=== PATIENT | female | born 1975 ===

== ENCOUNTER → 2019-10-23 | Outpatient (CLI) | payer OTHER ==
[~2019-10-23] VITALS: Ht 175.3 cm; Wt 111.1 kg
[~2019-10-23] MED LIST: CARVEDILOL12.5 MG PO; METHADONE HCL5 MG PO; NORCO 5-325 TA1 EAC1 PO; TIZANIDINE HCL 22 M1 PO; TRAZODONE HCL100 MG PO; XANAX1 MG PO; ZOFRAN4 MG PO
[2019-10-23 12:53] VITALS: BP 149/98
--- NOTE | 2019-10-23 13:22 | NUR ---
Pain Clinic Assessment: 1. History of Osteoarthritis: History of Rheumatoid Arthritis: Not Applicable 2. Height: 5 ft. 9 in. 175.3 cm. Weight: 245.0 lb. oz. 111.132 kg. Patient's BMI: 6.8 3. Vital Signs: BP: 149/98 Pulse: 61 Resp: 29 Temp: 02 Sat: 98 ECG Mon: 4. Pain Intensity: 7 5. Fall Risk: Dizziness: Y Needs help standing or walking: N Fallen in the last 3 months: N Fall risk comments: 6. Patient on Blood Thinner: 7. History of Hypertension: N 8. Opioid Therapy greater than 6 weeks: Y Opiate Contract Signed: 9. Risk Assessment Tool Provided: 10. Functional Assessment Tool: 11. Recreational Drug Use: Drug Type: Tobacco Use: Current Every Day Smoker Tobacco Type: Cigarettes Amount or Packs/day: 1 How Many Years: 30 Alcohol Use: No Frequency: Quant:
--- NOTE | 2019-11-10 14:24 | HPC ---
[facility] [address] [place] [address] PAIN MANAGEMENT CONSULTATION Name: ARACELI PIERSON Room #: REG OLIVIA JohnsonJim#: [id number] Admission: 10/23/19 Attend Phys: Romelia Stovall MD Discharge: Date of : 73 Report #: [id number] THIS REPORT FOR: //name// CC: GLORIA physician/PCP Nakul Marie DATE OF SERVICE: 10/23/2019 CHIEF COMPLAINT: Right upper quadrant pain, which is stabbing, nonstop with nausea. HISTORY: The patient is a 44-year-old female who has been referred to the pain clinic. The patient states that she has a history of pseudotumor cerebri with chronic pain. She has had a number of shunts placed. A total of 27 since 2005. They have been placed in her brain as well as in the abdominal area. She has history of seizures. This is being treated for asthma. She has stomach problems, joint disease. She has pain, which is most problematic at this point on the right upper quadrant underneath her breast and chest area. She has had epidural steroid injections in the past. As a result of the arachnoiditis, she had increased pain and discomfort for quite some time after that procedure. She has seen a number of specialists for her pain, yet her pain continues to be problematic. PAST MEDICAL HISTORY: As described above. SOCIAL HISTORY: She has been disabled since 2003. PAIN CLINIC ASSESSMENT/PQRS: 1. History of osteoarthritis. The patient is not being treated for osteoarthritis, is not being treated for rheumatoid arthritis. 2. Height 5 feet 9 inches, weight 245 pounds, BMI is to be tabulated. 3. Vital signs: Blood pressure is 149/98, pulse 61, respiratory rate 29. 4. Saturations at 98%. 5. Pain intensity 7-810. 6. Fall history: The patient has not fallen in the last 3 months. 7. Blood thinner. The patient is not on a blood thinning medication. 8. Hypertension. The patient is not being treated for hypertension. 9. Opioids greater than 6 weeks. The patient received some opioid medications from her primary physician. 10. Risk assessment tool, moderate for opioid use. 11. Functional assessment tool, 55/70. 12. Recreational drug use: The patient denies. 13. Tobacco: The patient smokes 1 pack of cigarettes per day and smoked for last 30 years. 14. Alcohol. The patient denies use of alcoholic beverages. [address] [address] PAIN MANAGEMENT CONSULTATION Name: ARACELI PIERSON Room #: REG CLI AlexJim#: [id number] Admission: 10/23/19 Attend Phys: Romelia Stovall MD Discharge: Date of : 73 Report #: [id number] PHYSICAL EXAMINATION: GENERAL: The patient is a well-developed, well-nourished white female. Appears her stated age. She is alert and oriented x 3. She is tearful during the interview. Has complaints of pain and discomfort in the left and right arms. Has pain in the occipital areas. Has some midline pain. Has pain in the left and right lumbar paraspinous areas. Also, has pain and discomfort in the right area approximately T8, 9, 10 area of her right chest wall. EXTREMITIES: Upper extremity muscle strength is judged to be 5-/5 for the major muscle groups in the upper extremity. Lower extremity, the patient's muscle strength judged to be 5/5 in the major muscle groups in the lower extremity. The patient complains of pain and discomfort along the right thoracic area approximately T8 through T10. This area is sensitive and areas of hyperesthesia are noted. LABORATORY DATA: CT of the chest without contrast dated 09/02/2019. Findings; 1. Cardiac unremarkable. Normal heart size without pericardial effusion. 2. Pulmonary vasculature and aorta are unremarkable. 3. Nodes unremarkable. No thoracic adenopathy. 4. Lungs are unremarkable. No focal infiltrates, suspicious pulmonary nodules or pulmonary effusion. 5. Limited evidence of a prior anterior abdominal wall repair. Absent gallbladder elevation of the left hemidiaphragm. 6. Bone degenerative changes of the spine, stimulator wires noted, otherwise negative. MEDICATIONS: The medications are; 1. Alprazolam 1 mg 2 times daily. 2. Carvedilol 12.5 mg daily. 3. Tizanidine 2 mg 3 pills t.i.d. 4. Zofran 4 mg daily. 5. Hydrocodone 5/325 one p.o. t.i.d. 6. Trazodone 200 mg at bedtime. ALLERGIES: ULTRAM, TEGADERM, LATEX, TETRACYCLINE, NONSTEROIDAL ANTI-INFLAMMATORY MEDICATIONS HAVE BEEN PROBLEMATIC. ADHESIVE TAPES, LYRICA, GABAPENTIN. IMPRESSION: 1. Pseudotumor cerebri. 2. Chronic pain. RECOMMENDATIONS: We discussed treatment options with the patient. The patient is unable to take a number of medications. She states that GI problems preclude her from using nonsteroidal anti-inflammatory medications. She states that she [address] [address] PAIN MANAGEMENT CONSULTATION Name: ARACELI PIERSON Room #: REG OLIVIA Knight#: [id number] Admission: 10/23/19 Attend Phys: Romelia Stovall MD Discharge: Date of : 73 Report #: [id number] did find some benefit with using Lidoderm patches applied to the chest wall. These were no longer an option because of her insurance carrier. We have explained to the patient that use of RectiCare, which is a 5% solution of lidocaine can be applied to the area and has been by some patients and they found that this has been helpful. We will have the patient try methadone. We have explained the ability of methadone to help in some pain conditions where other opioid medications have been less effective. We have explained that opioid medications can be problematic in certain patients. They can develop an addiction to these medications. She states that she has been using her hydrocodone medication and has not been showing signs of addiction. Script for methadone 10 mg 1 tablet daily has been written. The patient will also try use of RectiCare, which is a 5% lidocaine solution or Salonpas which is a 4% lidocaine solution. We would like to thank you for letting us participate in her care. We hope she continues to improve. <ELECTRONICALLY SIGNED> By: Romelia Stovall MD 11/10/19 1424 [id number] Romelia Stovall MD /nt
== END ==
LOC: PAIN 07:34
DX: R10.11 Right upper quadrant pain (principal); G93.2 Benign intracranial hypertension

== ENCOUNTER → 2019-11-18 | Outpatient (CLI) | payer OTHER ==
[~2019-11-18] VITALS: Ht 175.3 cm; Wt 107.8 kg
[2019-11-18 09:43] VITALS: BP 136/73
--- NOTE | 2019-11-18 09:58 | NUR ---
Pain Clinic Assessment: 1. History of Osteoarthritis: NECK HANDS-MAY BE RA History of Rheumatoid Arthritis: POSSIBLY 2. Height: 5 ft. 9 in. 175.3 cm. Weight: 237.6 lb. oz. 107.775 kg. Patient's BMI: 35.1 3. Vital Signs: BP: 136/73 Pulse: 65 Resp: 16 Temp: 02 Sat: 98 ECG Mon: 4. Pain Intensity: 5-7 5. Fall Risk: Dizziness: Y Needs help standing or walking: N Fallen in the last 3 months: N Fall risk comments: 6. Patient on Blood Thinner: None 7. History of Hypertension: N 8. Opioid Therapy greater than 6 weeks: Y Opiate Contract Signed: 9. Risk Assessment Tool Provided: 3-LOW RISK 10. Functional Assessment Tool: 55/70 11. Recreational Drug Use: Never Drug Type: Tobacco Use: Current Every Day Smoker Tobacco Type: Amount or Packs/day: How Many Years: Alcohol Use: No Frequency: Quant:
--- NOTE | 2019-11-19 15:59 | HPC ---
[facility] [address] [place] [address] PAIN MANAGEMENT CONSULTATION Name: ARACELI PIERSON Room #: REG OLIVIA Alex.#: [id number] Admission: 11/18/19 Attend Phys: Felicitas Moss Discharge: Date of : 73 Report #: [id number] THIS REPORT FOR: //name// CC: Felicitas Moss [facility] physician/PCP Nakul Stovall MD DATE OF SERVICE: 11/18/2019 CHIEF COMPLAINT: Right upper quadrant pain as a result of pseudotumor cerebri. HISTORY OF PRESENT ILLNESS: This is a pleasant 44-year-old female who returns to the pain clinic today for evaluation on a newly started medication of methadone. The patient reports that her pain score is a 5 today. She feels that the methadone is very beneficial in controlling her pain. She reports that following day after taking her first dose, she felt so much better, she was able to cook for her family, which she had not been able to do for a significant amount of time. She takes her dose at 4-5 in the morning. She does feel that by midday, it is wearing off. She does continue to take 2-3 hydrocodone a day and finds that she is able to function much better on this new regimen. Her pain is in the right chest wall that does radiate into her lumbar area again rating her pain score 5/10, which is sharp, stabbing, constant pain. She would like to have a refill of this medication today. ALLERGIES: LATEX, NONSTEROIDALS ANTI-INFLAMMATORIES, ADHESIVE TAPE, TRAMADOL, GABAPENTIN, AND LYRICA. MEDICATIONS: Methadone 5 mg daily, trazodone 200 mg at bedtime, hydrocodone 5/325 t.i.d., Zofran p.r.n., tizanidine 6 mg t.i.d. p.r.n., and alprazolam 1 mg b.i.d. PQRS: 1. She has a history of osteoarthritis and not being treated for in her neck and hands. She denies any rheumatoid arthritis. 2. Height is 5 feet 9 inches, weight is 237, BMI is 35. 3. Vital signs 136/73, pulse is 65, respirations 16, oxygen sat is 98. 4. Pain score is 5/10. 5. Complains of dizziness, does not need help walking or standing, has not fallen in the last 3 months. She is not on any blood thinners or medicines for hypertension. Her opioid therapy is greater than 6 weeks. Her risk assessment tool is low. Functional assessment is 55/70. 6. Recreational drug use, she denies. She is a current smoker and does not drink alcohol. [address] [address] PAIN MANAGEMENT CONSULTATION Name: ARACELI PIERSON Room #: REG OLIVIA Knight#: [id number] Admission: 11/18/19 Attend Phys: Felicitas Moss Discharge: Date of : 73 Report #: [id number] According to the prescription monitoring system, the patient is due to fill her methadone this weekend. She is also getting her alprazolam and her hydrocodone from her primary care doctor. PHYSICAL EXAMINATION: GENERAL: This is alert and orientated, well-developed white female who appears her stated age. She is placing her current pain score 5/10. HEENT: She has pain and discomfort in her occipital areas. MUSCULOSKELETAL: Pain in her right thoracic area following the T8-T10 is very sensitive and radiates into her right chest wall under her right breast. Her lower extremity strength judged to be 5/5 in all major muscle groups. IMPRESSION: 1. Pseudotumor cerebri. 2. Chronic pain. 3. Complex medical management utilizing methadone. We reviewed the fact that opiate medications are being used to provide analgesia adequate to support activities of daily living, not attempting to achieve a specific pain score on the 0-10 Visual Analog Scale. The current opiate medications are providing sufficient analgesia to allow the patient to participate in activities of daily living. The patient is not exhibiting any aberrant behavior suggestive of drug diversion. The patient is not having any adverse reactions to medications. The patient is not suffering from daytime somnolence or mental acuity changes. The patient is managing opiate-induced constipation with appropriate capr-kin-hlxxzaf agents and dietary considerations. The patient was counseled on concern for caution with operating a motor vehicle while using opiate medications. A physical exam was performed and the patient's functional status was evaluated. All patients with back pain were advised against the bed rest greater than 4 days and were advised to return to normal activities. Pain score assessment was noted and the treatment plan was reviewed with the patient. All current medications, both prescribed and OTC were reviewed and reconciled on the electronic medical record. Tobacco screening was accomplished and smoking cessation was advised when indicated. BMI was noted and diet/exercise modification was recommended for all patients following outside normal parameters. I reviewed with the patient today their responsibilities to safeguard prescription medications, reviewed their responsibility to utilize medications only as prescribed by the physician. They are to seek and receive pain medications only from 1 physician group ([facility]). They are to use 1 pharmacy and keep the clinic informed if they change pharmacies. Their responsibilities include making followup visits in a timely fashion and to avoid abrupt discontinuation of medication usage. Their responsibilities further [address] [address] PAIN MANAGEMENT CONSULTATION Name: ARACELI PIERSON Room #: REG [facility].#: [id number] Admission: 11/18/19 Attend Phys: Felicitas Moss Discharge: Date of : 73 Report #: [id number] include bringing their medications (bottles from the pharmacy with residual pills) to the visit for possible confirmation of pill counts and the patient understands it is their responsibility to submit to random drug screens to ensure both that the medications prescribed are present, and that no other controlled substances are present. All prescriptions provided today were generated electronically. PLAN: 1. We discussed treatment options with the patient today. The patient feels that the methadone therapy has been very beneficial helping her pain at least 20%. She reports she was able to cook and help rule out around the house while taking this medication, though it does decrease in efficacy in the afternoon hours. We discussed increasing her methadone to 5 mg b.i.d. We discussed the half-life of this medication and possible side effects. The patient verbalizes understanding. We will trial 5 mg twice a day for the next month. The patient instructed to decrease her hydrocodone use to 2 a day when we increase her methadone. She verbalizes understanding. 2. We discussed opioid and benzodiazepine interactions and encouraged the patient not to take these medicines at the same time, utilizing the lowest most effective dose of both medications. 3. We also discussed that we will have the patient sign an opioid agreement at her next appointment. If we continue to write for her methadone and not her primary care doctor, we will also then at that time take over writing her hydrocodone having 1 provider prescribing opioids. She verbalizes understanding. 4. Appointment made for 12/18/[address] Stovall to evaluate her increase in methadone. <ELECTRONICALLY SIGNED> By: Felicitas Moss 11/19/19 1559 [id number] Felicitas Moss /nt
== END ==
LOC: PAIN 06:45
DX: G93.2 Benign intracranial hypertension (principal); R10.11 Right upper quadrant pain; G89.29 Other chronic pain; Z91.041 Radiographic dye allergy status; Z88.8 Allergy status to other drugs, medicaments and biological substances; Z91.048 Other nonmedicinal substance allergy status; Z79.899 Other long term (current) drug therapy

== ENCOUNTER → 2019-12-18 | Outpatient (CLI) | payer OTHER ==
[~2019-12-18] VITALS: Ht 175.3 cm; Wt 109.7 kg
[2019-12-18 10:46] VITALS: BP 109/56
--- NOTE | 2019-12-18 11:04 | NUR ---
Pain Clinic Assessment: 1. History of Osteoarthritis: NECK HANDS-MAY BE RA History of Rheumatoid Arthritis: POSSIBLY 2. Height: 5 ft. 9 in. 175.3 cm. Weight: 241.8 lb. oz. 109.680 kg. Patient's BMI: 35.7 3. Vital Signs: BP: 109/56 Pulse: 50 Resp: 14 Temp: 02 Sat: 97 ECG Mon: 4. Pain Intensity: 4 5. Fall Risk: Dizziness: N Needs help standing or walking: N Fallen in the last 3 months: N Fall risk comments: 6. Patient on Blood Thinner: None 7. History of Hypertension: N 8. Opioid Therapy greater than 6 weeks: Y Opiate Contract Signed: 12/18/19 9. Risk Assessment Tool Provided: 3-LOW RISK 10. Functional Assessment Tool: 11. Recreational Drug Use: Never Drug Type: Tobacco Use: Former Smoker Tobacco Type: Amount or Packs/day: How Many Years: Alcohol Use: No Frequency: Quant:
--- NOTE | 2019-12-23 13:33 | HPC ---
[facility] [address] [address] PAIN MANAGEMENT CONSULTATION Name: ARACELI PIERSON Room #: REG OLIVIA JohnsonJim#: [id number] Admission: 12/18/19 Attend Phys: Romelia Stovall MD Discharge: Date of : 73 Report #: [id number] THIS REPORT FOR: cc: GLORIA - Jennifer family physician/PCP GLORIA - Jennifer family physician/PCP Romelia Stovall MD ~ THIS REPORT FOR: //name// CC: GLORIA physician/PCP Romelia Stovall DATE OF SERVICE: 12/18/2019 CHIEF COMPLAINT: Headache pain from pseudotumor cerebri. The medications are helpful. HISTORY: The patient is a 44-year-old female who is being followed in the pain clinic because of chronic pain. As you may recall, she has had chronic headaches for much of her life. She has had numerous shunts. She states that she has had about 28 shunts since 2005, because of the continued pressure she suffers from significant headaches. She has tried a number of medications over the years. She continues to have pain in the right upper quadrant under her breast and chest area. These are some of the areas where the shunt have been placed. 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 She has found that methadone has been efficacious. She has taken the medication as prescribed and has returned today for followup and review. ALLERGIES: NONSTEROIDAL ANTI-INFLAMMATORY MEDICATIONS, TETRACYCLINE, LATEX, ULTRAM, TEGADERM, ADHESIVES, LYRICA, GABAPENTIN. CURRENT MEDICATIONS: Alprazolam 1 mg b.i.d., carvedilol 12.5 mg, tizanidine 2 mg 3 pills t.i.d., Zofran 4 mg daily, hydrocodone 5/325 one p.o. b.i.d. to t.i.d., trazodone 200 mg at bedtime, and methadone 5 mg b.i.d. PAIN CLINIC ASSESSMENT AND PQRS: 1. The patient is not being treated for osteoarthritis. She is not being treated for rheumatoid arthritis. 2. Height 5 feet 9 inches, weight 241 pounds, BMI is 35.7. 3. Vital signs: Blood pressure 109/56, pulse 50, respiratory rate 16, room air saturation is 97%. 4. Pain intensity 02/18. 5. Fall history: The patient has not fallen in the last 3 months. 6. Blood thinner. The patient is not on a blood thinning medication. 7. Hypertension. The patient is being treated for hypertension. 8. Opioids greater than 6 weeks. The patient received medication from one source, [place] [address] PAIN MANAGEMENT CONSULTATION Name: ARACELI PIERSON Room #: REG [facility] Eugene#: [id number] Admission: 12/18/19 Attend Phys: Romelia Stovall MD Discharge: Date of : 73 Report #: [id number] 9. Risk assessment tool, low for opioid use. 10. Functional assessment tool, . 11. Recreational drug use: The patient denies. 12. Tobacco: The patient stopped smoking, 3 weeks. She is vaping at this juncture. 13. Alcohol. The patient denies use of alcoholic beverages. PHYSICAL EXAMINATION: GENERAL: The patient is a well-developed, well-nourished white female. Appears her stated age. She is alert and oriented x 3. Her affect is appropriate. Speech is fluent. HEENT: Normocephalic, atraumatic. Extraocular eye muscles intact. Sclerae nonicteric. Mucous membranes are moist. She is accompanied by her . She has less pain in the left and right arm areas, less discomfort in the occipital areas. MUSCULOSKELETAL: Upper extremity muscle strength judged to be 5-/5 for the major muscle groups in the upper extremity. Lower extremity, the patient with muscle strength judged to be 5/5 for the major muscle groups. The patient without significant scoliosis, kyphosis, or lordosis. The patient has some pain and discomfort in the right thoracic area at approximately T8 through T10. This is an area of hyperesthesia. IMPRESSION: 1. Pseudotumor cerebri. 2. Chronic pain. 3. Hypertension. 4. Asthma. 5. Seizure history. 6. Stomach problems. 7. Past history of cancer, status post LEEP surgery. RECOMMENDATIONS: We discussed treatment options with the patient. At this juncture, she feels that the medication is helpful. She rates her pain today as 4/10. She is not having any complications from the medications. Overall, she feels that things are going reasonably well. We will continue with her medications. We explained to her the need to continue with her medications as prescribed. She has signed a contract with the pain clinic that she would adhere to the contract recommendations. She is aware that opioid medications can be problematic in certain people. She does not show any signs of addiction. She has taken her medication as prescribed. [facility] [address] [place] [address] PAIN MANAGEMENT CONSULTATION Name: BEEKER,ARACELI Room #: REG OLIVIA Knight#: [id number] Admission: 12/18/19 Attend Phys: Romelia Stovall MD Discharge: Date of : 73 Report #: [id number] We would like to thank you for letting us participate in her care. We hope she continues to improve and do well with her current medical regimen. <ELECTRONICALLY SIGNED> By: Romelia Stovall MD 12/23/19 1333 [id number] Romelia Stovall MD /nt
== END ==
LOC: PAIN 06:54
DX: G93.2 Benign intracranial hypertension (principal); G89.29 Other chronic pain; I10 Essential (primary) hypertension; J45.909 Unspecified asthma, uncomplicated; Z85.9 Personal history of malignant neoplasm, unspecified; Z86.69 Personal history of other diseases of the nervous system and sense organs

== ENCOUNTER → 2020-01-15 | Outpatient (CLI) | payer OTHER ==
[~2020-01-15] VITALS: Ht 175.3 cm; Wt 108.6 kg
[2020-01-15 10:49] VITALS: BP 128/88
--- NOTE | 2020-01-15 11:17 | NUR ---
Pain Clinic Assessment: 1. History of Osteoarthritis: NECK HANDS-MAY BE RA History of Rheumatoid Arthritis: POSSIBLY 2. Height: 5 ft. 9 in. 175.3 cm. Weight: 239.4 lb. oz. 108.591 kg. Patient's BMI: 35.3 3. Vital Signs: BP: 128/88 Pulse: 65 Resp: 16 Temp: 02 Sat: 98 ECG Mon: 4. Pain Intensity: 7 5. Fall Risk: Dizziness: N Needs help standing or walking: N Fallen in the last 3 months: N Fall risk comments: 6. Patient on Blood Thinner: None 7. History of Hypertension: N 8. Opioid Therapy greater than 6 weeks: Y Opiate Contract Signed: 12/18/19 9. Risk Assessment Tool Provided: 3-LOW RISK 10. Functional Assessment Tool: 11. Recreational Drug Use: Never Drug Type: Tobacco Use: Former Smoker Tobacco Type: Amount or Packs/day: How Many Years: Alcohol Use: No Frequency: Quant:
--- NOTE | 2020-01-21 13:51 | HPC ---
[facility] [place] [address] PAIN MANAGEMENT CONSULTATION Name: ARACELI PIERSON Room #: REG OLIVIA Knight#: [id number] Admission: 01/15/20 Attend Phys: Romelia Stovall MD Discharge: Date of : 73 Report #: [id number] THIS REPORT FOR: cc: [facility] - No family physician/PCP [facility] - No family physician/PCP Romelia Stovall MD ~ CC: [facility] physician/PCP Nakul Stovall DATE OF SERVICE: 01/15/2020 CHIEF COMPLAINT: Headache pain from pseudotumor cerebri has improved. HISTORY: The patient is a 44-year-old female who has been followed in the pain clinic. As you may recall, she has had problems with headaches. Because of her pseudotumor cerebri the patient has had a number of shunts. She states that she has had about 28 hunts since 2005. Because of the continued pressure she experiences headaches. She has found that use of methadone improves her pain. She rates her pain as a 7/10 today. She also has some pain secondary to gastrointestinal discomfort. She has returned today for renewal of her medications. Overall, she thinks that things are helpful and would like to continue their use. ALLERGIES: 1. THE PATIENT HAS SOME GI PROBLEMS SECONDARY TO USE OF NONSTEROIDAL ANTI-INFLAMMATORY MEDICATIONS. 2. TETRACYCLINE 3. LASIX. 4. ULTRAM. 5. TEGADERM-ADHESIVES. 6. LYRICA. 7. GABAPENTIN. CURRENT MEDICATIONS: Alprazolam 1 mg b.i.d., carvedilol 12.5 mg, tizanidine 2 mg t.i.d., Zofran 4 mg daily, hydrocodone 5/325 one p.o. b.i.d. to t.i.d., trazodone 200 mg at bedtime, and methadone 5 mg b.i.d. PAIN CLINIC ASSESSMENT AND PQRS: 1. The patient has osteoarthritic changes in her neck as well as in her hands. Feels that she might have rheumatoid arthritis. 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 2. Height 5 feet 9 inches, weight 239 pounds, BMI is 35.3. 3. Vital Signs: Blood pressure 128/88, pulse 65, respiratory rate 16, room air saturation 98%. 4. Pain intensity 7/10 on the right side. She has noted some pain in the [facility] [address] [place] [address] PAIN MANAGEMENT CONSULTATION Name: ARACELI PIERSON [id number] Admission: 01/15/20 Attend Phys: Romelia Stovall MD Discharge: Date of : 73 Report #: [id number] thoracic area. 5. Fall history: The patient has not fallen in the last 3 months. 6. Blood thinner. The patient is not on a blood thinning medication. 7. Hypertension. The patient is not being treated for hypertension. 8. Opioids greater than 6 weeks. The patient receives medication from one source, pain clinic. 9. Risk assessment tool, low for opioid use. 10. Recreational drug use: The patient denies. 11. Functional assessment tool 55/70. 12. Tobacco: The patient is a former smoker, has not smoked for the last 2 months. 13. Alcohol. The patient rare use of alcoholic beverages. PHYSICAL EXAMINATION: GENERAL: The patient is a well-developed, well-nourished white female. Appears her stated age. She is alert and oriented x 3. She is accompanied by her significant other. HEENT: Normocephalic, atraumatic. Extraocular muscles intact. Sclerae nonicteric. Mucous membranes are moist. NECK: The patient has some pain and discomfort on the left side in the right arm area. Has some discomfort in the occipital areas. MUSCULOSKELETAL: Upper extremity muscle strength judged to be 5-/5 for the major muscle groups in the upper extremity. Lower extremity muscle strength judged to be 5/5 for the major muscle groups in the upper extremity. The patient without significant scoliosis, kyphosis, or lordosis. The patient has some pain and discomfort in the thoracic area at about T8 through T7 where this area has some hyperesthesia. IMPRESSION: 1. Pseudotumor cerebri. 2. Chronic pain as a result of this above problem. 3. Hypertension. 4. Asthma. 5. Seizure history. 6. Stomach problems. 7. Past history of cancer, status post LEEP surgery. RECOMMENDATIONS: We discussed treatment options with the patient. At this juncture, we will continue with her medication. She feels that the methadone medication has provided some improved benefit. She rates her pain as a 7/10 rather than 10/10. She is able to engage in activities with less discomfort. She is not having any untoward problems with the medication. She is able to think clearly. She is able to function clearly. She is aware that opioid medications can be problematic in some people. She is aware that opioid medications have been associated with the patient's dying from overdoses. She is taking the medication as prescribed. A script for her medication has been [facility] [address] [place] [address] PAIN MANAGEMENT CONSULTATION Name: ARACELI PIERSON Room #: LEIGH Knight#: [id number] Admission: 01/15/20 Attend Phys: Romelia Stovall MD Discharge: Date of : 73 Report #: [id number] rewritten. She will continue with hydrocodone 5/325 one p.o. t.i.d. The patient will also continue with methadone 5 mg b.i.d. She will call us if she has any concerns. We would like to thank you for letting us participate in her care. We hope she continues to improve. <ELECTRONICALLY SIGNED> By: Romelia Stovall MD 01/21/20 1351 [id number] Romelia Stovall MD /nt
== END ==
LOC: PAIN 06:51
DX: G93.2 Benign intracranial hypertension (principal); G89.4 Chronic pain syndrome; I10 Essential (primary) hypertension; J45.909 Unspecified asthma, uncomplicated; Z85.89 Personal history of malignant neoplasm of other organs and systems; Z88.1 Allergy status to other antibiotic agents; Z88.5 Allergy status to narcotic agent; Z88.8 Allergy status to other drugs, medicaments and biological substances; Z79.899 Other long term (current) drug therapy; Z87.891 Personal history of nicotine dependence; Z72.89 Other problems related to lifestyle

== ENCOUNTER → 2020-02-10 | Outpatient (CLI) | payer OTHER ==
[~2020-02-10] VITALS: Ht 175.3 cm; Wt 111.7 kg
[~2020-02-10] MED LIST changes: +MEDROLDOSEPACK PO
--- NOTE | ~2020-02-10 | HPC ---
[facility] [place] [address] PAIN MANAGEMENT CONSULTATION Name: ARACELI PIERSON Room #: REG OLIVIA Knight#: [id number] Admission: 02/10/20 Attend Phys: Romelia Stovall MD Discharge: Date of : 73 Report #: [id number] THIS REPORT FOR: cc: [facility] - Jennifer family physician/PCP [facility] - Jennifer family physician/PCP Romelia Stovall MD ~ CC: Dr. Nakul Pedersen [facility] physician/PCP Romelia Stovall DATE OF SERVICE: 02/10/2020 FOLLOWUP COMPLAINT: The headaches have improved with the medication. I am having more pain in my shoulder and down the low back area today. I did quite a bit of yard work. HISTORY: The patient is a 45-year-old female who has been followed in the pain clinic. She has had chronic problems with headaches. She has pseudotumor cerebri. She has had a number of shunts to decreased fluid pressure. She states that she has had about 28 shunts since 2005. She continues to have headache pain. She finds that the methadone medication has been helpful. She rates her pain as a 6/10 today. She has returned today for renewal of her medication. As a result of working out in her yard, she contacted poison howie. She has it on her face, hands, and up around her eye. ALLERGIES: THE PATIENT HAS SOME GI PROBLEMS SECONDARY TO USE OF NONSTEROIDAL ANTI-INFLAMMATORY MEDICATIONS. TETRACYCLINE, LASIX, ULTRAM, TEGADERMS/ADHESIVES, LYRICA, AND GABAPENTIN. CURRENT MEDICATIONS: Alprazolam 1 mg b.i.d., carvedilol 12.5 mg, tizanidine 2 mg t.i.d., Zofran 4 mg daily, hydrocodone 5/325 one p.o. b.i.d.-t.i.d., trazodone 200 mg at bedtime, and methadone 5 mg b.i.d. PAIN CLINIC ASSESSMENT/PQRS: 1. The patient has some changes in her neck as well as in her hands. She feels that she might have some components of rheumatoid arthritis. She is not being treated for rheumatoid arthritis. 2. Height 5 feet 9 inches, weight 246 pounds, BMI is 36.3. 3. Vital Signs: Blood pressure 110/53, pulse 72, respiratory rate 16, room air saturations 100%. 4. Pain intensity 6/10 with pain in her shoulders and down in the back area. After working in her yard. 5. Fall risk. The patient has not fallen in the last 3 months. 6. Blood thinner. The patient is not on a blood thinning medication. 7. Hypertension. The patient is not being treated for hypertension. 8. Opioids. The patient receives medication from one source the pain clinic. [address] [address] PAIN MANAGEMENT CONSULTATION Name: ARACELI PIERSON Room #: REG [facility]#: [id number] Admission: 02/10/20 Attend Phys: Romelia Stovall MD Discharge: Date of : 73 Report #: [id number] 9. Risk assessment tool, low for opioid use. 10. Functional assessment tool, 55/70. 11. Recreational drug use: The patient denies. 12. Tobacco: The patient is a former smoker. 13. Alcohol. The patient denies frequent use of alcoholic beverages. PHYSICAL EXAMINATION: GENERAL: The patient is a well-developed, well-nourished white female. Appears her stated age. She is alert and oriented x 3. She is unaccompanied. HEENT: Normocephalic, atraumatic. Extraocular eye muscles intact. Sclerae nonicteric. Mucous membranes are moist. NECK: Without adenopathy. The patient does have some pain and discomfort in her neck as well as in her arms. Has some discomfort in the occipital area. MUSCULOSKELETAL: Upper extremity muscle strength judged to be 5-/5 for the major muscle groups in upper extremity. The patient has some low back soreness after yard work. The patient is without significant scoliosis, kyphosis, or lordosis. The patient has some thoracic pain about T8/T7. She also has some hyperesthesia in these areas. IMPRESSION: 1. Pseudotumor cerebri. 2. Chronic pain as a result of the above, treated with complex medical management using opioids. 3. Hypertension. 4. Asthma. 5. Seizure history. 6. Stomach problems. 7. History of cancer, status post LEEP surgery. RECOMMENDATIONS: We discussed treatment options with the patient. At this juncture, we will continue with her medication. She feels that the methadone medication is helpful. She feels that is beneficial. Rates her pain as a 6/10. She has been active. She is able to work out in her yard. Has noted a rash on her arms, face as a result of poison howie. We have discussed the possible problems with poison howie. It can get in your eye and cause significant problems. At this juncture, we will have the patient try a Medrol Dosepak to take in the interim. Hopefully, this will quiet this element down. She will continue with her medications as prescribed. She will call us if she has any concerns. We would like to thank you for letting us participate in her care. A script for [address] [place] [address] PAIN MANAGEMENT CONSULTATION Name: ARACELI PIERSON Room #: REG OLIVIA Knight#: [id number] Admission: 02/10/20 Attend Phys: Romelia Stovall MD Discharge: Date of : 73 Report #: [id number] hydrocodone 5/325 one p.o. t.i.d. has been provided. The patient will also continue with methadone 5 mg 1 p.o. b.i.d., total of 60 tablets was provided. By: [id number] Romelia Stovall MD /PMT
[2020-02-10 09:26] VITALS: BP 110/53
--- NOTE | 2020-02-10 09:34 | NUR ---
Pain Clinic Assessment: 1. History of Osteoarthritis: NECK HANDS History of Rheumatoid Arthritis: HAND WRIST 2. Height: 5 ft. 9 in. 175.3 cm. Weight: 246.2 lb. oz. 111.676 kg. Patient's BMI: 36.3 3. Vital Signs: BP: 110/53 Pulse: 72 Resp: 16 Temp: 02 Sat: 100 ECG Mon: 4. Pain Intensity: 6 5. Fall Risk: Dizziness: N Needs help standing or walking: N Fallen in the last 3 months: N Fall risk comments: 6. Patient on Blood Thinner: None 7. History of Hypertension: N 8. Opioid Therapy greater than 6 weeks: Y Opiate Contract Signed: 12/18/19 9. Risk Assessment Tool Provided: 3-LOW RISK 10. Functional Assessment Tool: / 11. Recreational Drug Use: Never Drug Type: Tobacco Use: Former Smoker Tobacco Type: Amount or Packs/day: How Many Years: Alcohol Use: No Frequency: Quant:
== END | disposition home or self-care (01) ==
LOC: PAIN 06:47
DX: G93.2 Benign intracranial hypertension (principal); G89.29 Other chronic pain; R51 Headache; I10 Essential (primary) hypertension; J45.909 Unspecified asthma, uncomplicated; Z87.891 Personal history of nicotine dependence; Z98.890 Other specified postprocedural states; Z79.899 Other long term (current) drug therapy

== ENCOUNTER → 2020-03-16 | Outpatient (CLI) | payer OTHER ==
--- NOTE | 2020-03-17 14:32 | HPC ---
[facility] [place] [address] PAIN MANAGEMENT CONSULTATION Name: ARACELI PIERSON Room #: REG OLIVIA Eugene#: [id number] Admission: 03/16/20 Attend Phys: Felicitas Moss Discharge: Date of : 73 Report #: [id number] THIS REPORT FOR: cc: FAM - No family physician/PCP FAM - No family physician/PCP Felicitas Moss ~ CC: Mil Stovall MD DATE OF SERVICE: 03/16/2020 This is a telemedicine appointment due to the coronavirus and the patient is immunocompromised. The phone telemedicine conference, which the patient agreed upon, took place from [phone]. CHIEF COMPLAINT: Headache pain from pseudotumor cerebri. HISTORY OF PRESENT ILLNESS: This is a very pleasant 45-year-old female who I am speaking with via the telephone today for a telemedicine appointment for her opioid medication refills. Today, she is reporting a pain score of 5/10. She feels that her headache is her worst pain today, though she does occasionally have shoulder pain and back pain. She states that the storms that we have been having presently have increased the pressure in her head, which has caused increased pain, especially behind her eyes. She states that the methadone is beneficial in helping control most of her pain, though she did report the pharmacy gave her 51 pills at her last refill since they did not have the full amount. The patient has been taking 1 pill on occasional days to make her full 30 days in between for appointments. Today, she would like refills of her methadone and her hydrocodone. The patient does report that the Medrol Dosepak that Dr. Stovall prescribed for her at her last visit for the Poison Shawanda that she had on her face and ears was beneficial. It did take about 5 days before she noticed the rash starts to crust over and have some relief of her symptoms. ALLERGIES: NONSTEROIDAL ANTI-INFLAMMATORIES, LATEX, TETRACYCLINE, ADHESIVE TAPE, TRAMADOL, GABAPENTIN AND LYRICA. CURRENT MEDICATIONS: Trazodone 100 mg tablets, Zofran p.r.n., tizanidine, alprazolam, methadone 5 mg b.i.d. and hydrocodone 5/325 p.r.n. PQRS: 1. She does have osteoarthritic changes in her neck and hands as well as rheumatoid arthritis in her hands and wrist. 2. Height, weight and vital signs were deferred today due to a telemedicine appointment. The patient states her pain score is 5/10 today. [place] [address] PAIN MANAGEMENT CONSULTATION Name: ARACELI PIERSON [facility] [id number] Admission: 03/16/20 Attend Phys: Felicitas Moss Discharge: Date of : 73 Report #: [id number] dizziness, does not need help walking or standing, has not fallen in the last 3 months. She is not on any blood thinners or medicine for hypertension. Her opioid therapy is greater than 6 weeks; therefore, an opioid signed contract is on the chart. Risk assessment tool is low. Functional assessment is 55/70. 3. Recreational drug use, she denies. She is a former smoker and does not drink alcohol. According to the prescription monitoring system, she is due to fill her medications. She did fill her entire hydrocodone script but was only given 51 of her 60 tablets of her methadone. The patient did not call to let us know that the pharmacy shorted her. She has just been going with less pills on some days to accommodate the 9 missing pills. PHYSICAL EXAMINATION: GENERAL: This is alert and orientated 45-year-old female who is answering all my questions today appropriately via the telephone conference. This is only review of systems since it is over the phone. The patient states her pain score is 5/10 today. HEAD: The patient reports a pressure behind her eyes, feels like eyes are bruised. MUSCULOSKELETAL: Also has some soreness in her lower back per her report. IMPRESSION: 1. Pseudotumor cerebri. 2. Chronic pain as a result of above. 3. Asthma. 4. Seizure history. 5. History of cancer, status post LEEP surgery. 6. Complex medical management under terms of written opioid agreement. PLAN: 1. We discussed treatment options with the patient today. I explained to the patient that if the pharmacy does not have the her entire amount, the rest of the prescription is voided. If this happens again, we instructed her to call our office, so we can send the remainder of the medications for her or she is able to decrease it slightly as she has done this past month that is fine too, but I would not accept a prescription of less than 10 pills off of her allotted amount. The patient verbalizes understanding. She was able to get by on less pills since she has been at home during the COVID virus not being as active as she normally would be. 2. The patient denies any problems with overmedication or constipation issues as a result of her opioid medications. Today, we will have Dr. Stovall send her methadone 5 mg b.i.d., #60 and hydrocodone 5/325, #90 to her pharmacy. 3. The patient will return in 1 month for an appointment for her opioid [facility] [address] [place] [address] PAIN MANAGEMENT CONSULTATION Name: ARACELI PIERSON [facility] [id number] Admission: 03/16/20 Attend Phys: Felicitas Moss Discharge: Date of : 73 Report #: [id number] medications. The patient's phone call was today with the collaboration with Dr. Stovall. <ELECTRONICALLY SIGNED> By: Felicitas Moss 03/17/20 1432 1432 41 Felicitas Moss /rao
== END ==
LOC: TELEPC 06:48 → PAIN 06:48
DX: G93.2 Benign intracranial hypertension (principal); R51 Headache; G89.29 Other chronic pain; J45.909 Unspecified asthma, uncomplicated; F11.20 Opioid dependence, uncomplicated; Z88.1 Allergy status to other antibiotic agents; Z88.5 Allergy status to narcotic agent; Z88.3 Allergy status to other anti-infective agents; Z88.8 Allergy status to other drugs, medicaments and biological substances; Z91.048 Other nonmedicinal substance allergy status; Z86.69 Personal history of other diseases of the nervous system and sense organs; Z98.890 Other specified postprocedural states; Z79.899 Other long term (current) drug therapy

== ENCOUNTER → 2020-04-13 | Outpatient (CLI) | payer OTHER ==
[~2020-04-13] VITALS: Ht 175.3 cm; Wt 109.8 kg
[2020-04-13 10:24] VITALS: BP 167/87
--- NOTE | 2020-04-13 10:48 | NUR ---
Pain Clinic Assessment: 1. History of Osteoarthritis: NECK HANDS History of Rheumatoid Arthritis: SHE SAYS YES ? EARLE 2. Height: 5 ft. 9 in. 175.3 cm. Weight: 242.0 lb. oz. 109.771 kg. Patient's BMI: 35.7 3. Vital Signs: BP: 167/87 Pulse: 80 Resp: 16 Temp: 02 Sat: 98 ECG Mon: 4. Pain Intensity: 8 5. Fall Risk: Dizziness: N Needs help standing or walking: N Fallen in the last 3 months: N Fall risk comments: 6. Patient on Blood Thinner: None 7. History of Hypertension: N 8. Opioid Therapy greater than 6 weeks: Y Opiate Contract Signed: 12/18/19 9. Risk Assessment Tool Provided: 3-LOW RISK 10. Functional Assessment Tool: 11. Recreational Drug Use: Never Drug Type: Tobacco Use: Former Smoker Tobacco Type: Amount or Packs/day: How Many Years: Alcohol Use: Yes Frequency: Special Occasions Quant:
--- NOTE | 2020-04-14 08:54 | HPC ---
[facility] [address] [place] [address] PAIN MANAGEMENT CONSULTATION Name: ARACELI PIERSON Room #: REG OLIVIA Alex.#: [id number] Admission: 04/13/20 Attend Phys: Felicitas Moss Discharge: Date of : 73 Report #: [id number] THIS REPORT FOR: cc: FAM - No family physician/PCP FAM - No family physician/PCP Felicitas Moss ~ CC: Mil Stovall MD DATE OF SERVICE: 04/13/2020 CHIEF COMPLAINT: Headache pain from pseudotumor cerebri. HISTORY OF PRESENT ILLNESS: This is a 45-year-old female who returns to the pain clinic today for a refill of her opioid medications that she uses to help treat her ongoing headaches as a result of her pseudotumor cerebri. Today, she is complaining more of right flank pain and back pain. She states that she has been having some gallbladder issues, which has been causing this discomfort. She is trying to have an appointment with her GI specialist, but has been having difficulties due to the coronavirus. Today, she does report her pain score is an 8/10, burning, stabbing pain, worse with weather changes for her headache and eating has been causing difficulty with her abdominal pain and right flank pain. She states that the methadone and hydrocodone are beneficial, though she is experiencing significant constipation. She has been taking Zofran on a daily basis, which does cause constipation as well as her opioids. ALLERGIES: LATEX, NSAIDS, TETRACYCLINE, ADHESIVE TAPE, TRAMADOL, GABAPENTIN AND LYRICA. MEDICATIONS: Methadone 5 mg b.i.d., hydrocodone 5/325 p.r.n., Zofran, tizanidine and Xanax. PQRS: 1. She has osteoarthritic changes in her hands and neck as well as being tested for rheumatoid arthritis. 2. Height is 5 feet 9 inches, weight is 242, BMI is 35. 3. Vital signs 167/87, pulse is 80, respirations 16, oxygen sat is 98. 4. Pain score is 8/10. 5. Denies dizziness, does not need help walking or standing, has not fallen in the last 3 months. 6. The patient is not on any blood thinners or medicine for hypertension. 7. Opiate therapy is greater than 6 weeks; therefore, an opioid signed contract is on the chart. Risk assessment tool is low. Functional assessment is 55/70. 8. Recreational drug use, she denies. She is a former smoker and occasionally drinks alcohol. According to the prescription monitoring system, the patient is filling [address] [address] PAIN MANAGEMENT CONSULTATION Name: ARACELI PIERSON Room #: REG [facility].#: [id number] Admission: 04/13/20 Attend Phys: Felicitas Moss Discharge: Date of : 73 Report #: [id number] appropriately for her medications in a timely fashion. She is due to fill those later this week. According to the CDC guidelines, her morphine mEq is 50 MME per day. PHYSICAL EXAMINATION: GENERAL: This is alert and orientated, well-developed, well-nourished, slightly obese 45-year-old female who appears her stated age, placing her current pain score at 8/10. HEENT: Normocephalic, atraumatic. Extraocular eye muscles are intact. She is wearing a mask. NECK: Without adenopathy. She does have discomfort in her neck as well as her upper arms and that radiates into her occipital area. MUSCULOSKELETAL: Upper extremity strength judged to be 5/5 in all major muscle groups. She is without significant scoliosis, kyphosis or lordosis. She has pain in her right flank area that radiates into her abdomen today. Her abdomen is distended. IMPRESSION: 1. Pseudotumor cerebri. 2. Chronic pain as a result of the above, treated with complex medical management using opioids. 3. Right flank abdominal pain. 4. Hypertension. 5. Asthma. 6. Seizure history. 7. History of cancer, status post LEEP surgery. We reviewed the fact that opiate medications are being used to provide analgesia adequate to support activities of daily living, not attempting to achieve a specific pain score on the 0-10 Visual Analog Scale. The current opiate medications are providing sufficient analgesia to allow the patient to participate in activities of daily living. The patient is not exhibiting any aberrant behavior suggestive of drug diversion. The patient is not having any adverse reactions to medications. The patient is not suffering from daytime somnolence or mental acuity changes. The patient is managing opiate-induced constipation with appropriate [id number]-[id number] agents and dietary considerations. The patient was counseled on concern for caution with operating a motor vehicle while using opiate medications. PLAN: 1. We discussed treatment options with the patient today. The patient finds her medications beneficial in controlling her headache pain. Though today she is complaining of abdominal pain. She is trying to reach out to her GI doctor. She has had gallbladder issues in the past, was recently scoped for EGD. They are going to schedule a colonoscopy for her. 2. We will send electronically by Dr. Stovall her hydrocodone , #[address] [address] PAIN MANAGEMENT CONSULTATION Name: ARACELI PIERSON Room #: LEIGH Knight#: [id number] Admission: 04/13/20 Attend Phys: Felicitas Moss Discharge: Date of : 73 Report #: [id number] as methadone 5 mg b.i.d., #60 to her pharmacy. The patient will return in 1 month for a followup appointment. At that time, we will obtain a UDS. 3. The patient is seen in collaboration with Dr. Jeffrey Stovall. <ELECTRONICALLY SIGNED> By: Felicitas Moss 04/14/20 0854 [id number] Felicitas Moss /nt
== END ==
LOC: PAIN 06:55
DX: G93.2 Benign intracranial hypertension (principal); I10 Essential (primary) hypertension; J45.909 Unspecified asthma, uncomplicated; R56.9 Unspecified convulsions; F11.90 Opioid use, unspecified, uncomplicated; Z79.899 Other long term (current) drug therapy

== ENCOUNTER → 2020-05-11 | Outpatient (CLI) | payer OTHER ==
[~2020-05-11] VITALS: Ht 175.3 cm; Wt 110.1 kg
[2020-05-11 10:42] VITALS: BP 130/73
--- NOTE | 2020-05-11 11:04 | NUR ---
Pain Clinic Assessment: 1. History of Osteoarthritis: NECK HANDS History of Rheumatoid Arthritis: SHE SAYS YES ? EARLE 2. Height: 5 ft. 9 in. 175.3 cm. Weight: 242.8 lb. oz. 110.134 kg. Patient's BMI: 35.8 3. Vital Signs: BP: 130/73 Pulse: 56 Resp: 16 Temp: 02 Sat: 100 ECG Mon: 4. Pain Intensity: 5 5. Fall Risk: Dizziness: N Needs help standing or walking: N Fallen in the last 3 months: N Fall risk comments: 6. Patient on Blood Thinner: None 7. History of Hypertension: N 8. Opioid Therapy greater than 6 weeks: Y Opiate Contract Signed: 12/18/19 9. Risk Assessment Tool Provided: 3-LOW RISK 10. Functional Assessment Tool: 11. Recreational Drug Use: Never Drug Type: Tobacco Use: Former Smoker Tobacco Type: Amount or Packs/day: How Many Years: Alcohol Use: Yes Frequency: Quant:
--- NOTE | 2020-05-12 10:45 | HPC ---
[facility] [place] [address] PAIN MANAGEMENT CONSULTATION Name: ARACELI PIERSON Room #: REG OLIVIA Eugene#: [id number] Admission: 05/11/20 Attend Phys: Felicitas Moss Discharge: Date of : 73 Report #: [id number] THIS REPORT FOR: cc: FAM - No family physician/PCP FAM - No family physician/PCP Felicitas Moss ~ CC: Mil Stovall MD DATE OF SERVICE: 05/11/2020 CHIEF COMPLAINT: Headache as a result of pseudotumor cerebri. HISTORY OF PRESENT ILLNESS: This is a 45-year-old female who returns to the pain clinic today for refill of her opioid medications. Today, she is complaining of pain in her mid-back as well as a headache and ongoing right flank pain. She reports her pain score of 5/10 today, stating that she has had this abdominal right flank pain flared up again this weekend. She had had a flare the last time we had seen her. She reports that she had an emesis that was bile colored. She has not seen a GI doctor. She has been trying to get in with her primary care doctor to have a GI specialist see her. She is worried that maybe she has pancreatitis as a result of her previous gallbladder issues. Today, she spent most of the visit discussing this abdominal issues, not complaining of her headache pain. The patient is also requesting today of names again for primary care doctors within our system. She feels that her primary care doctor in [place] is getting ready to retire. ALLERGIES: LATEX, NONSTEROIDAL ANTI-INFLAMMATORIES, TETRACYCLINE, ADHESIVE TAPE, TRAMADOL, GABAPENTIN AND LYRICA MEDICATIONS: Carvedilol, methadone 5 mg b.i.d., hydrocodone 5/325 t.i.d., Zofran, tizanidine and alprazolam. PQRS: 1. She has arthritic changes in her hands and neck and she states being treated for rheumatoid arthritis with no medications currently. 2. Height is 5 feet 9 inches, weight is 242, BMI is 35. 3. Vital signs 130/73, pulse is 56, respirations 16, oxygen sat is 100. 4. Pain score is 5/10. 5. Denies dizziness, does not need help walking or standing, has not fallen in the last 3 months. 6. The patient is not on any blood thinners or medicine for hypertension. 7. Opioid therapy is greater than 6 weeks; therefore, an opioid signed contract is on the chart. Risk assessment tool is low. Functional assessment is 55/70. 8. Recreational drug use, she denies. She is a former smoker and occasionally drinks alcohol. [facility] [address] [place] [address] PAIN MANAGEMENT CONSULTATION Name: HARDY PIERSONODY Room #: REG OLIVIA Knight#: [id number] Admission: 05/11/20 Attend Phys: Felicitas DIMPLE Moss Discharge: Date of : 73 Report #: [id number] According to the prescription monitoring system, she is filling appropriately for her medications. She is due to fill her medicines this week. Her morphine mEq is 45 MME. PHYSICAL EXAMINATION: GENERAL: This is alert and orientated, well-developed, slightly obese 45-year-old female who appears her stated age, placing her current pain score at 5/10. HEENT: Normocephalic, atraumatic. Extraocular eye muscles are intact. Mucous membranes are moist, though she is wearing a mask. NECK: Without adenopathy. She does complain of a headache that radiates from her neck upward into the occipital area. MUSCULOSKELETAL: Upper extremity strength judged to be 5/5 in all major muscle groups. She has pain in her right flank area that radiates from her lumbar region into her abdomen. She is without significant scoliosis, kyphosis or lordosis. IMPRESSION: 1. Pseudotumor cerebri. 2. Right flank abdominal pain, ongoing. 3. Hypertension. 4. Asthma. 5. Seizure history. 6. History of cancer, status post LEEP surgery. 7. Chronic pain, treated with complex medical management utilizing methadone. We reviewed the fact that opiate medications are being used to provide analgesia adequate to support activities of daily living, not attempting to achieve a specific pain score on the 0-10 Visual Analog Scale. The current opiate medications are providing sufficient analgesia to allow the patient to participate in activities of daily living. The patient is not exhibiting any aberrant behavior suggestive of drug diversion. The patient is not having any adverse reactions to medications. The patient is not suffering from daytime somnolence or mental acuity changes. The patient is managing opiate-induced constipation with appropriate [id number] agents and dietary considerations. The patient was counseled on concern for caution with operating a motor vehicle while using opiate medications. A physical exam was performed and the patient's functional status was evaluated. All patients with back pain were advised against the bed rest greater than 4 days and were advised to return to normal activities. Pain score assessment was noted and the treatment plan was reviewed with the patient. All current medications, both prescribed and OTC were reviewed and reconciled on the electronic medical record. Tobacco screening was accomplished and smoking cessation was advised when indicated. BMI was noted and diet/exercise [address] [address] PAIN MANAGEMENT CONSULTATION Name: ARACELI PIERSON Room #: REG OLIVIA Knight#: [id number] Admission: 05/11/20 Attend Phys: Felicitas Moss Discharge: Date of : 73 Report #: [id number] modification was recommended for all patients following outside normal parameters. I reviewed with the patient today their responsibilities to safeguard prescription medications, reviewed their responsibility to utilize medications only as prescribed by the physician. They are to seek and receive pain medications only from 1 physician group ( [facility]). They are to use 1 pharmacy and keep the clinic informed if they change pharmacies. Their responsibilities include making followup visits in a timely fashion and to avoid abrupt discontinuation of medication usage. Their responsibilities further include bringing their medications (bottles from the pharmacy with residual pills) to the visit for possible confirmation of pill counts and the patient understands it is their responsibility to submit to random drug screens to ensure both that the medications prescribed are present, and that no other controlled substances are present. All prescriptions provided today were generated electronically. PLAN: 1. We discussed treatment options with the patient today. The patient finds her medications very beneficial in controlling most of her pain, though she continues to have flares of abdominal pain. The patient wonders if it is related to her gallbladder, sphincter of Oddi or pancreatitis. I encouraged her to seek consult with her primary care doctor, so she may see her GI doctor. She is worried that her PCP is retiring. We will give her names for primary care doctors within our hospital complex, but encouraged her to call again to her primary to see a GI doctor. 2. We will refill her methadone 5 mg b.i.d. and hydrocodone 5/325 t.i.d., Dr. Jeffrey Stovall will write these medications today. 3. The patient will provide us with a urine specimen for random drug screen. 4. The patient will be seen in 1 month followup. Today care collaborated with Dr. Jeffrey Stovall. <ELECTRONICALLY SIGNED> By: Felicitas Moss 05/12/20 1045 [id number] Felicitas Moss /nt
== END ==
LOC: PAIN 07:01
PROVIDERS: ATTEND Clinical Nurse Specialist Adult Health
DX: D49.6 Neoplasm of unspecified behavior of brain (principal); M19.042 Primary osteoarthritis, left hand; M19.041 Primary osteoarthritis, right hand; I10 Essential (primary) hypertension; Z79.899 Other long term (current) drug therapy

== ENCOUNTER → 2020-06-10 | Outpatient (CLI) | payer OTHER ==
[~2020-06-10] VITALS: Ht 175.3 cm; Wt 106.8 kg
[~2020-06-10] MED LIST changes: +HYDROCODON-ACE1 EAC7 PO
[2020-06-10 10:32] VITALS: BP 126/82
--- NOTE | 2020-06-10 10:37 | NUR ---
Pain Clinic Assessment: 1. History of Osteoarthritis: NECK HANDS History of Rheumatoid Arthritis: SHE SAYS YES ? EARLE 2. Height: 5 ft. 9 in. 175.3 cm. Weight: 235.4 lb. oz. 106.777 kg. Patient's BMI: 34.7 3. Vital Signs: BP: 126/82 Pulse: 57 Resp: 20 Temp: 02 Sat: 97 ECG Mon: 4. Pain Intensity: 6-7 5. Fall Risk: Dizziness: N Needs help standing or walking: N Fallen in the last 3 months: N Fall risk comments: 6. Patient on Blood Thinner: None 7. History of Hypertension: N 8. Opioid Therapy greater than 6 weeks: Y Opiate Contract Signed: 12/18/19 9. Risk Assessment Tool Provided: 3-LOW RISK 10. Functional Assessment Tool: 11. Recreational Drug Use: Never Drug Type: Tobacco Use: Former Smoker Tobacco Type: Amount or Packs/day: How Many Years: Alcohol Use: Yes Frequency: Quant:
--- NOTE | 2020-06-24 08:23 | HPC ---
[facility] [place] [address] [place] [address] PAIN MANAGEMENT CONSULTATION Name: ARACELI PIERSON Room #: REG OLIVIA Johnson.#: [id number] Admission: 06/10/20 Attend Phys: Romelia Stovall MD Discharge: Date of : 73 Report #: [id number] THIS REPORT FOR: cc: [facility] - No family physician/PCP FAM - No family physician/PCP Romelia Stovall MD ~ CC: [facility] physician/PCP ESTRELLA Stovall DATE OF SERVICE: 06/10/2020 CHIEF COMPLAINT: Back right side and mid back. HISTORY: The patient is a 45-year-old female who has been followed in the pain clinic because of chronic pain. She has a history of chronic headaches. She suffers from Pseudotumor cerebri. She has had a number of shunts. She has had at least 28 shunts since 2005. She suffers from chronic headaches. Her medication regimen of methadone has been efficacious. She rates her pain today as 6-7/10. Notes that the pain is worse when there are some changes in the weather. She characterizes the pain as stabbing, constant, burning and aching. She has returned today for renewal of her medications. ALLERGIES: THE PATIENT HAS SOME GI PROBLEMS SECONDARY TO USE OF NONSTEROIDAL ANTI-INFLAMMATORY MEDICATIONS, TETRACYCLINE, LASIX, ULTRAM, TEGADERMS/ADHESIVES, LYRICA, GABAPENTIN. CURRENT MEDICATIONS: Alprazolam 1 mg b.i.d., carvedilol 12.5 mg, tizanidine 2 mg t.i.d., Zofran 4 mg daily, hydrocodone 5/325 one p.o. b.i.d. and t.i.d., trazodone 200 mg at bedtime, and methadone 5 mg p.o. b.i.d. PAIN CLINIC ASSESSMENT AND PQRS: 1. The patient has some changes in her neck as well as her hands. Feels that she may be suffering from rheumatoid arthritis. She is not being treated for rheumatoid arthritis. 2. Height 5 feet 9 inches, weight 235 pounds, BMI 34. 3. Vital Signs: Blood pressure 126/82, pulse 57, respiratory rate 20, room air saturation 97%. 4. Pain intensity 6-7/10. 5. Fall history: The patient has not fallen in the last 3 months. 6. Blood thinner. The patient is not on a blood thinning medication. 7. Hypertension. The patient is not being treated for hypertension. 8. Opioids greater than 6 weeks. The patient receives medications from one source the pain clinic. 9. Risk assessment tool, low risk. 10. Functional assessment tool 55/70[place] [address] PAIN MANAGEMENT CONSULTATION Name: ARACELI PIERSON Room #: REG OLIVIA Knight#: [id number] Admission: 06/10/20 Attend Phys: Romelia Stovall MD Discharge: Date of : 73 Report #: [id number] 11. Recreational drug use. The patient denies. 12. Tobacco: The patient is a former smoker. 13. Alcohol: The patient drinks alcoholic beverages on occasion. PHYSICAL EXAMINATION: GENERAL: The patient is a well-developed, well-nourished white female. Appears her stated age. She is alert and oriented x 3. Her affect is appropriate. Speech is fluent. HEENT: Normocephalic, atraumatic. Extraocular eye muscles intact. Sclerae nonicteric. Mucous membranes are moist. The patient is wearing a mask. NECK: Without adenopathy. The patient does have pain and discomfort in the neck area as well as in her arms. Also, complains of pain in the occipital area. MUSCULOSKELETAL: The patient complains of some pain in the mid back area and along the right side of her back. EXTREMITIES: Upper extremity muscle strength judged to be 5/5 for the major muscle groups in the upper extremity. Lower extremity muscle strength 5/5. The patient without significant scoliosis, kyphosis or lordosis. Has had some thoracic pain in the past in the T8/T7 area. IMPRESSION: 1. Pseudotumor cerebri. 2. Chronic pain as a result of the above, treated with complex medical management using opioids. 3. Hypertension. 4. Asthma. 5. Seizure history. 6. Stomach problems. 7. History of cancer, status post LEEP surgery. RECOMMENDATIONS: We discussed treatment options with the patient. At this juncture, we will continue with her medications. She feels that these medications are helpful. She is able to have a more active lifestyle. She feels that she is not having any problems with mentation. Keeps her medications in a guarded area. We explained to the patient the medications can become less effective as time goes on because of the tolerance associated with opioid medications. A script for her medications of hydrocodone 5 mg 1 p.o. t.i.d. has been renewed. The patient will also continue with methadone 5 mg 1 p.o. b.i.d. We would like to thank you for letting us participate in her care. We hope she continues to improve. <ELECTRONICALLY SIGNED> By: Romelia Stovall MD 06/24/20 0823 [id number] Romelia Stovall MD /nt
== END ==
LOC: PAIN 06:55
PROVIDERS: ATTEND Anesthesiology Pain Medicine
DX: G89.29 Other chronic pain (principal); G93.2 Benign intracranial hypertension; M54.89 Other dorsalgia; I10 Essential (primary) hypertension; J45.909 Unspecified asthma, uncomplicated; Z88.8 Allergy status to other drugs, medicaments and biological substances; Z98.890 Other specified postprocedural states; Z79.899 Other long term (current) drug therapy; Z79.891 Long term (current) use of opiate analgesic

== ENCOUNTER → 2020-07-08 | Outpatient (CLI) | payer OTHER ==
[~2020-07-08] VITALS: Ht 175.3 cm; Wt 102.1 kg
--- NOTE | ~2020-07-08 | HPC ---
[facility] [place] [address] PAIN MANAGEMENT CONSULTATION Name: ARACELI PIERSON Room #: REG OLIVIA Johnson.#: [id number] Admission: 07/08/20 Attend Phys: Romelia Stovall MD Discharge: Date of : 73 Report #: [id number] THIS REPORT FOR: cc: Nakul Barnes John DO Brown, N. Wayne MD ~ CC: Nakul Stovall DATE OF SERVICE: 07/08/2020 CHIEF COMPLAINT: Right upper back pain. HISTORY: The patient is a 45-year-old female who has been followed in the pain clinic because of chronic pain. The patient has been experiencing pain in the upper back. She has had a cholecystectomy. She states that she has felt somewhat sick and thrown up a bowel like substance. 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 She states that COVID-19 has made it difficult. Her physician is not seeing patients at this juncture. She rates her pain as a 6-7/10. She also has pain as a result of Pseudotumor cerebri. She has had a number of shunts, numbering approximately 27 surgeries because of this chronic headache problem. She has found her current medications efficacious. Because of the pain and discomfort she has been experiencing, she states she has lost about 20 pounds. She would like to know the etiology of her discomfort. ALLERGIES: THE PATIENT HAS SOME GI PROBLEMS SECONDARY TO USE OF NONSTEROIDAL ANTI-INFLAMMATORY MEDICATION IN THE PAST, TETRACYCLINE, LASIX, ULTRAM, TEGADERM/ADHESIVES, LYRICA, GABAPENTIN. CURRENT MEDICATIONS: Alprazolam 1 mg b.i.d., Coreg 12.5 mg, tizanidine 2 mg t.i.d., Zofran 4 mg daily, hydrocodone 5/325 one p.o. t.i.d., trazodone 200 mg at bedtime, and methadone 5 mg b.i.d. PAIN CLINIC ASSESSMENT AND PQRS: 1. The patient has some orthopedic changes in her neck as well as in her hands. She feels that she is may be suffering from rheumatoid arthritis. She is not being treated for rheumatoid arthritis. 2. Height 5 feet 9 inches, weight 225 pounds, BMI 33. 3. Vital Signs: Blood pressure 148/89, pulse 75, respiratory rate 16, room air saturation 99%. 4. Pain intensity 6-7/10. 5. Fall history: The patient has not fallen in the last 3 months. 6. Blood thinner. The patient is not on a blood thinning medication. 7[place] [address] PAIN MANAGEMENT CONSULTATION Name: ARACELI PIERSON Room #: REG CL Eugene#: [id number] Admission: 07/08/20 Attend Phys: Romelia Stovall MD Discharge: Date of : 73 Report #: [id number] 8. Opioid use, greater than 6 weeks. The patient receives medication from the pain clinic. 9. Risk assessment tool, low for opioid use. 10. Functional assessment tool, 55/70. 11. Recreational drug use: The patient is not using recreational drugs at this juncture. 12. Tobacco: The patient is a former smoker. 13. Alcohol: The patient drinks 1-2 alcoholic beverages on occasion. PHYSICAL EXAMINATION: GENERAL: The patient is a well-developed, well-nourished white female. Appears her stated age. She is alert and oriented x 3. Her affect is appropriate. She is somewhat concerned because of the chronic pain in the back area. HEENT: Normocephalic, atraumatic. Extraocular eye muscles intact. Sclerae nonicteric. Mucous membranes are moist. The patient is wearing a facial covering. NECK: Without adenopathy. The patient has some pain and discomfort in the area of her right upper back. MUSCULOSKELETAL: The patient complains of some pain in the mid back area and along the right side and flank. EXTREMITIES: Upper extremity muscle strength judged to be 5/5 for the major muscle groups in the upper extremity. Lower extremity muscle strength is 5/5. The patient is without significant scoliosis, kyphosis or lordosis. The patient does complain of some pain and discomfort in the T8, T7 area in the right back area. IMPRESSION: 1. History of Pseudotumor cerebri. 2. Chronic pain from the above with complex medical management using opioids. 3. Hypertension. 4. Asthma. 5. Seizure history. 6. Stomach problems ? feeling a bowel taste or regurge in the esophagus/mouth area. 7. History of cancer, status post LEEP surgery. RECOMMENDATIONS: We discussed treatment options with the patient. At this juncture, we will continue with her current medical management. A script for hydrocodone 5 mg 1 p.o. t.i.d. has been provided. The patient will also continue with methadone 5 mg 1 p.o. b.i.d. She is concerned about the chronic pain that she is having in the back area. She has had a cholecystectomy. She still states that she has had some feelings of bowel regurgitation. She states that she had seen a physician who has discussed the possibility of what sounds like a neurolytic celiac plexus block to help quiet down the pain. I am not so sure this would be the appropriate thing to do at this juncture. The use of celiac plexus blocks are oftentimes used in terminal patients. It is possible [facility] [address] [place] [address] PAIN MANAGEMENT CONSULTATION Name: ARACELI PIERSON Room #: REG [facility] Eugene#: [id number] Admission: 07/08/20 Attend Phys: Romelia Stovall MD Discharge: Date of : 73 Report #: [id number] that during this procedure ____ neurolytic block could cause chronic pain after some period of time. We will discuss this with other pain physicians in the pain clinic. We would like to thank you for letting us participate in her care. We hope she continues to improve. By: [id number] Romelia Stovall MD /nt
[2020-07-08 10:24] VITALS: BP 148/89
--- NOTE | 2020-07-08 10:37 | NUR ---
Pain Clinic Assessment: 1. History of Osteoarthritis: NECK HANDS History of Rheumatoid Arthritis: SHE SAYS YES ? EARLE 2. Height: 5 ft. 9 in. 175.3 cm. Weight: 225.0 lb. oz. 102.060 kg. Patient's BMI: 33.2 3. Vital Signs: BP: 148/89 Pulse: 75 Resp: 16 Temp: 02 Sat: 99 ECG Mon: 4. Pain Intensity: 6-7 5. Fall Risk: Dizziness: N Needs help standing or walking: N Fallen in the last 3 months: N Fall risk comments: 6. Patient on Blood Thinner: None 7. History of Hypertension: N 8. Opioid Therapy greater than 6 weeks: Y Opiate Contract Signed: 12/18/19 9. Risk Assessment Tool Provided: 3-LOW RISK 10. Functional Assessment Tool: 11. Recreational Drug Use: Never Drug Type: Tobacco Use: Former Smoker Tobacco Type: Amount or Packs/day: How Many Years: Alcohol Use: Yes Frequency: Special Occasions Quant: 1-2
== END ==
LOC: PAIN 06:53
PROVIDERS: ATTEND Anesthesiology Pain Medicine
DX: M54.5 Low back pain (principal); I10 Essential (primary) hypertension; J45.909 Unspecified asthma, uncomplicated; K92.89 Other specified diseases of the digestive system; F11.20 Opioid dependence, uncomplicated; Z87.410 Personal history of cervical dysplasia; Z86.011 Personal history of benign neoplasm of the brain; Z86.69 Personal history of other diseases of the nervous system and sense organs; Z87.891 Personal history of nicotine dependence; Z79.899 Other long term (current) drug therapy; Z88.8 Allergy status to other drugs, medicaments and biological substances

== ENCOUNTER → 2020-08-05 | Outpatient (CLI) | payer OTHER ==
[~2020-08-05] VITALS: Ht 175.3 cm; Wt 108.6 kg
--- NOTE | ~2020-08-05 | HPC ---
[facility] [place] [address] PAIN MANAGEMENT CONSULTATION Name: ARACELI PIERSON Room #: REG OLIVIA Eugene#: [id number] Admission: 08/05/20 Attend Phys: Romelia Stovall MD Discharge: Date of : 73 Report #: [id number] CC: Nakul Stovall DATE OF SERVICE: 08/15/2020 FOLLOWUP COMPLAINT: Medications are helpful. HISTORY: The patient is a 45-year-old female who has been followed in the pain clinic because of chronic pain. As you may recall, she has a long extensive history of chronic pain. She has been having some pain in the right side and back area. She is following up with a marketing budget analyst. She has a history of pseudotumor cerebri with chronic headache pain. She feels that her current medications are efficacious and feels that they are doing reasonably well. She would like to have her medications renewed. She is not having any problems with the medications. CURRENT MEDICATIONS: Alprazolam 1 mg b.i.d., Coreg 12.5 mg, tizanidine 2 mg t.i.d., Zofran 4 mg daily, hydrocodone 5/325 one p.o. t.i.d., trazodone 200 mg at bedtime, and methadone 5 mg b.i.d. ALLERGIES: The patient has some GI problems secondary to use of NONSTEROIDAL ANTI-INFLAMMATORY MEDICATION IN THE PAST, TETRACYCLINE, LASIX, ULTRAM, TEGADERMS/ADHESIVES, LYRICA, GABAPENTIN. PAIN CLINIC ASSESSMENT AND PQRS: 1. The patient has some arthritic changes in her neck as well as in her hands. She feels that she may be suffering from rheumatoid arthritis. She is not being treated for rheumatoid arthritis. 2. Height 5 feet 9 inches, weight 239 pounds, BMI 35. 3. Vital Signs: Blood pressure 129/64, pulse 57, respiratory rate 16, room air saturation is 99%. 4. Pain intensity 5/10. 5. Fall history: The patient has not fallen in the last 3 months. 6. Blood thinner. The patient is not on a blood thinning medication. 7. Hypertension. The patient is not being treated for hypertension. 8. Opioids greater than 6 weeks. The patient receives medication from the pain clinic. 9. Risk assessment tool, low for opioid use. 10. Functional assessment tool 55/70. 11. Recreational drug use. The patient denies. 12. Tobacco: The patient is a former smoker. 13. Alcohol: The patient occasionally drinks alcoholic beverages. PHYSICAL EXAMINATION: GENERAL: The patient is a well-developed, well-nourished white female. Appears her stated age. She is alert and oriented x 3. Her affect is appropriate. Speech is fluent. HEENT: Normocephalic, atraumatic. Extraocular eye muscles intact. The patient is wearing a facial covering. NECK: Without adenopathy. The patient does have some pain and discomfort in the area of her right upper back. MUSCULOSKELETAL: The patient complains of pain in the mid portion of her back as well as along the right side near the flank. EXTREMITIES: Upper extremity muscle strength judged to be 5/5 for the major muscle groups in the upper extremity. The patient has some lower extremity muscle strength rated at 5/5. The patient without significant scoliosis, kyphosis or lordosis. The patient does have some pain and discomfort in the T8-T7 area on the back on the right side. IMPRESSION: 1. History of Pseudotumor cerebri 2. Chronic pain from the above using complex medical management to help control the pain. 3. Hypertension. 4. Asthma. 5. Seizure history. 6. GI complaints of feeling of bile taste with regurgitation esophageal area. 7. History of cancer, status post LEEP surgery. RECOMMENDATIONS: We discussed treatment options with the patient. At this juncture, we will continue with her medications. A script for her medications have been provided. They will be sent to her pharmacy. She is aware that opioid medications can become less effective as time goes on. She keeps her medications in a guarded area. She feels overall that the addition of the methadone has made her life more tolerable. She rates her pain as a 5/10. A script for hydrocodone 5 mg 1 p.o. t.i.d. has been provided. The patient will also continue with methadone 5 mg 1 p.o. b.i.d. She will continue to follow up with her gastrointestinal physician in regards to the feeling of bile reflux into her throat. We would like to thank you for letting us participate in her care. We hope she continues to improve. By: [id number] Romelia Stovall MD /KATHIE
[2020-08-05 10:01] VITALS: BP 129/64
--- NOTE | 2020-08-05 10:07 | NUR ---
Pain Clinic Assessment: 1. History of Osteoarthritis: NECK HANDS History of Rheumatoid Arthritis: SHE SAYS YES ? EARLE 2. Height: 5 ft. 9 in. 175.3 cm. Weight: 239.4 lb. oz. 108.591 kg. Patient's BMI: 35.3 3. Vital Signs: BP: 129/64 Pulse: 57 Resp: 16 Temp: 02 Sat: 99 ECG Mon: 4. Pain Intensity: 5 5. Fall Risk: Dizziness: N Needs help standing or walking: N Fallen in the last 3 months: N Fall risk comments: 6. Patient on Blood Thinner: None 7. History of Hypertension: N 8. Opioid Therapy greater than 6 weeks: Y Opiate Contract Signed: 12/18/19 9. Risk Assessment Tool Provided: 3-LOW RISK 10. Functional Assessment Tool: 11. Recreational Drug Use: Never Drug Type: Tobacco Use: Former Smoker Tobacco Type: Amount or Packs/day: How Many Years: Alcohol Use: Yes Frequency: Quant:
== END ==
LOC: PAIN 06:56
PROVIDERS: ATTEND Anesthesiology Pain Medicine
DX: G89.29 Other chronic pain (principal); I10 Essential (primary) hypertension; J45.909 Unspecified asthma, uncomplicated; Z86.69 Personal history of other diseases of the nervous system and sense organs; Z86.011 Personal history of benign neoplasm of the brain; Z85.89 Personal history of malignant neoplasm of other organs and systems; Z88.8 Allergy status to other drugs, medicaments and biological substances; Z79.899 Other long term (current) drug therapy

== ENCOUNTER → 2020-08-26 | Outpatient (CLI) | payer OTHER ==
[~2020-08-26] VITALS: Ht 175.3 cm; Wt 107.0 kg
[~2020-08-26] MED LIST changes: +HYOSCYAMINE0.125 MG PO
--- NOTE | ~2020-08-26 | HPC ---
[facility] [place] [address] PAIN MANAGEMENT CONSULTATION Name: ARACELI PIERSON Room #: REG OLIVIA JohnsonJim#: [id number] Admission: 08/26/20 Attend Phys: Romelia Stovall MD Discharge: Date of : 73 Report #: [id number] CC: Nakul Stovall DATE OF SERVICE: 08/26/2020 CHIEF COMPLAINT: Here for medications, things are going well. HISTORY: The patient is a 45-year-old female who has been followed in the pain clinic because of chronic pain. As you recall, she has a long and extensive history of chronic pain. She has right-sided pain involving her back. She has been followed by head swamper. She also has a history of pseudotumor cerebri which causes chronic headaches. This started after receiving an antibiotic. The patient finds that her medications are efficacious. They are helpful and she is able to do more activities with less discomfort. She recently saw a head swamper. She was provided with a new medication, hyoscyamine, which helped decrease some of the chronic spastic back pain she has been having over the years. ALLERGIES: NONSTEROIDAL ANTI-INFLAMMATORY MEDICATIONS IN THE PAST, TETRACYCLINE, LASIX, ULTRAM, ADHESIVES, TEGADERM, LYRICA, GABAPENTIN. CURRENT MEDICATIONS: Alprazolam 1 mg b.i.d., Coreg 12.5 mg, tizanidine 2 mg t.i.d., Zofran 4 mg daily, hydrocodone 5/325 one p.o. t.i.d., trazodone 200 mg at bedtime, and methadone 5 mg b.i.d., hyoscyamine 0.125 mg t.i.d. PAIN CLINIC ASSESSMENT AND PQRS: 1. The patient has some arthritic changes in her neck as well as in her hand. She feels that she may be suffering from rheumatoid arthritis. She is not being treated for rheumatoid arthritis. 2. Height 5 feet 9 inches, weight 235 pounds, BMI 34. 3. Vital signs: Blood pressure 120/71, pulse 65, respiratory rate 16, room air saturation 100%. 4. Pain intensity 5/10. 5. Fall history: The patient has not fallen in the last 3 months. 6. Blood thinner. The patient is not on a blood thinning medication. 7. Hypertension. The patient is not being treated for hypertension. 8. Opioids greater than 6 weeks. The patient received medication from the pain clinic. 9. Risk assessment tool, low for opioid use. 10. Functional assessment tool 55/70. 11. Recreational drug use: The patient denies. 12. Tobacco: The patient smokes 1-1/2 pack of cigarettes per day, has smoked for 30 years. 13. Alcohol. The patient denies regular use of alcoholic beverages. PHYSICAL EXAMINATION: GENERAL: The patient is a well-developed, well-nourished white female. Appears her stated age. She is alert and oriented x 3. Her affect is appropriate. Speech is fluent. HEENT: Normocephalic, atraumatic. Extraocular eye muscles intact. Sclerae nonicteric. Mucous membranes are moist. The patient is wearing a facial covering. HEART: Regular rate. LUNGS: Clear. The patient does complain of some pain in the midback area and along the right side of her flank. EXTREMITIES: Upper extremity muscle strength judged to be 5/5 for the major muscle groups in the upper extremity. Lower extremity muscle strength 5/5 for the major muscle groups in the lower extremity. The patient without significant scoliosis, kyphosis or lordosis. The patient complains of pain and discomfort in the T8/T7 area on the right portion of her back. IMPRESSION: 1. History of pseudotumor cerebri. 2. Chronic pain from the above problem. 3. Hypertension. 4. Asthma. 5. Seizure history. 6. Stomach problems. 7. History of cancer, status post LEEP surgery. RECOMMENDATIONS: We discussed treatment options with the patient. At this juncture, we will continue with her medications. She recently saw a head swamper. She was provided with a new medication, which has been helpful with the muscles discomfort in the back and GI problem. She feels that the hyoscyamine has been helpful. The first pill that she took help reduce the amount of spasm and discomfort in her back. She and her are planning on going on vacation to the [facility] in a trailer. Questions were sought and answered. A script for the patient's medications were provided. She will continue with hydrocodone 5/325 one p.o. t.i.d. She will also continue with methadone 5 mg 1 p.o. b.i.d. We would like to thank you for letting us participate in her care. We are happy that she seems to have found a way to decrease some of the chronic pain that she has been experiencing and found problematic. By: [id number] Romelia Stovall MD /rao
[2020-08-26 08:16] VITALS: BP 120/71
--- NOTE | 2020-08-26 08:34 | NUR ---
Pain Clinic Assessment: 1. History of Osteoarthritis: NECK HANDS History of Rheumatoid Arthritis: SHE SAYS YES ? EARLE 2. Height: 5 ft. 9 in. 175.3 cm. Weight: 235.8 lb. oz. 106.958 kg. Patient's BMI: 34.8 3. Vital Signs: BP: 120/71 Pulse: 65 Resp: 16 Temp: 02 Sat: 100 ECG Mon: 4. Pain Intensity: 5 5. Fall Risk: Dizziness: N Needs help standing or walking: N Fallen in the last 3 months: N Fall risk comments: 6. Patient on Blood Thinner: None 7. History of Hypertension: N 8. Opioid Therapy greater than 6 weeks: Y Opiate Contract Signed: 12/18/19 9. Risk Assessment Tool Provided: 3-LOW RISK 10. Functional Assessment Tool: 11. Recreational Drug Use: Never Drug Type: Tobacco Use: Former Smoker Tobacco Type: Cigarettes Amount or Packs/day: 1 1/2 PPD How Many Years: 30 Alcohol Use: Yes Frequency: Special Occasions Quant: 1 DRINK EVERY FEW MONTHS
== END ==
LOC: PAIN 06:45
PROVIDERS: ATTEND Anesthesiology Pain Medicine
DX: G89.29 Other chronic pain (principal); I10 Essential (primary) hypertension; J45.909 Unspecified asthma, uncomplicated; G93.89 Other specified disorders of brain; K92.89 Other specified diseases of the digestive system; Z87.39 Personal history of other diseases of the musculoskeletal system and connective tissue; Z85.828 Personal history of other malignant neoplasm of skin; Z88.8 Allergy status to other drugs, medicaments and biological substances; Z79.899 Other long term (current) drug therapy

== ENCOUNTER → 2020-09-30 | Outpatient (CLI) | payer OTHER ==
[~2020-09-30] VITALS: Ht 162.6 cm; Wt 108.9 kg
[~2020-09-30] MED LIST changes: +AMITRIPTYLINE H10 M3 PO
[2020-09-30 10:48] VITALS: BP 150/102
--- NOTE | 2020-09-30 10:55 | NUR ---
Pain Clinic Assessment: 1. History of Osteoarthritis: NECK HANDS History of Rheumatoid Arthritis: Right Upper Extremity 2. Height: 5 ft. 4 in. 162.6 cm. Weight: 240.0 lb. oz. 108.864 kg. Patient's BMI: 41.2 3. Vital Signs: BP: 150/102 Pulse: 78 Resp: 16 Temp: 02 Sat: 100 ECG Mon: 4. Pain Intensity: 6 5. Fall Risk: Dizziness: N Needs help standing or walking: N Fallen in the last 3 months: N Fall risk comments: 6. Patient on Blood Thinner: None 7. History of Hypertension: N 8. Opioid Therapy greater than 6 weeks: Y Opiate Contract Signed: 12/18/19 9. Risk Assessment Tool Provided: 3-LOW RISK 10. Functional Assessment Tool: / 11. Recreational Drug Use: Never Drug Type: Tobacco Use: Former Smoker Tobacco Type: Amount or Packs/day: How Many Years: Alcohol Use: Yes Frequency: Special Occasions Quant: 1
--- NOTE | 2020-10-03 16:09 | HPC ---
[facility] [place] [address] PAIN MANAGEMENT CONSULTATION Name: ARACELI PIERSON Room #: REG OLIVIA Alex.#: [id number] Admission: 09/30/20 Attend Phys: Felicitas Moss Discharge: Date of : 73 Report #: [id number] THIS REPORT FOR: cc: Nakul Barnes,Nakul Horton,Felicitas MUSA ~ CC: Felicitas Stovall MD DATE OF SERVICE: 09/30/2020 CHIEF COMPLAINT: Pseudo cerebri, chronic neck and head pain. HISTORY OF PRESENT ILLNESS: This is a 45-year-old female who returns today for her opioid medications. Dr. Stovall has been seeing her for the past year for medication management of methadone and oxycodone. She has found these very beneficial in helping relieve significant portions of her neck, back and shoulder pain. She has been having some ongoing abdominal pain as well. She reports seeing Dr. Lee since our last visit, who started her on hyoscyamine. She reports her pain was completely gone in her abdomen on the right upper quadrant after taking that medication and has slowly returned and he has started her on amitriptyline 10 mg at bedtime. She is only taking this medicine for a few days, so is unsure the results of this trial, but overall she feels that her abdominal pain is significantly better. They did discuss if it does continue she will be seeing Dr. Wolfe for possible ERCP and stent placement. The patient is very thankful to have found Dr. Lee to help with her ongoing abdominal pain. The patient today reports her pain as a 6/10 in her back, shoulders, head and neck. This is worse with weather changes or prolonged standing and walking as well as stress. Overall, she would like refills of her medications that she is very thankful to have. ALLERGIES: LATEX, NONSTEROIDAL, TETRACYCLINE, ADHESIVE TAPE, TRAMADOL, GABAPENTIN AND LYRICA. CURRENT LIST OF MEDICATIONS: Amitriptyline 10 mg at bedtime, methadone 5 mg b.i.d., hydrocodone 5 mg t.i.d., hyoscyamine q.i.d., Zofran, tizanidine and alprazolam. PQRS: 1. She has arthritic changes in her neck and hands, is not being treated for rheumatoid arthritis. 2. Height is 5 feet 9 inches, weight is 235, BMI is 34. 3. Vital signs; blood pressure 150/102, pulse is 78, respirations 16, oxygen sat is 100%. [place] [address] PAIN MANAGEMENT CONSULTATION Name: ARACELI PIERSON Room #: REG [facility] Alex.#: [id number] Admission: 09/30/20 Attend Phys: Felicitas Moss Discharge: Date of : 73 Report #: [id number] 4. Pain score 6/10. 5. Denies dizziness, does not need help walking or standing, has not fallen in the last 3 months. 6. The patient is not on any blood thinners or medicine for hypertension. 7. Opioid therapy is greater than 6 weeks; therefore, an opioid signed contract is on the chart. Risk assessment is low. Functional assessment is 55/70. 8. Recreational drug use in the past. She is a former smoker and occasionally drinks alcohol. According to the prescription monitoring system, the patient is filling appropriately for her medications. She is due to fill those medications early next week. Her morphine mEq is 45 MME per day. PHYSICAL EXAMINATION: GENERAL: This is alert and orientated, well-developed, well-nourished 45-year-old who appears her stated age, placing her current pain score at 6/10 today. Her speech is fluent and affect is appropriate. HEENT: Normocephalic and atraumatic. Extraocular eye muscles are intact. Mucous membranes are moist. She has a mask on. EXTREMITIES: The patient is without significant scoliosis, kyphosis or lordosis. She has discomfort in the T7-T8 portion of her back. Her upper and lower extremity strength are symmetrical. Also complains of frontal headache today. ABDOMEN: She complains of pain in her right flank and right upper quadrant pain. IMPRESSION: 1. History of Pseudotumor cerebri with multiple shunts. 2. Chronic pain associated with complex medical management utilizing scheduled medications. 3. Asthma. 4. Seizure history. 5. History of cancer, status post loop electrosurgical excision procedure surgery. PLAN: 1. We discussed treatment options with the patient today. The patient has been seeing Dr. Stovall for opioid management for greater than one year. We will now be able to see her every 2 months. The patient is excited to not make the two-hour drive in the winter. Scripts will be given today for her methadone 5 mg b.i.d. as well as her hydrocodone 5/325 t.i.d. for today and 4-week supply. 2. I encouraged the patient to keep us abreast on her abdominal issues and if she is needing an ERCP by Dr. Wolfe. Currently, she continues medication management from Dr. Lee and she is very thankful and tearful at times when explaining that the medications were so beneficial she had no abdominal pain for the first time in several years. [facility] [address] [place] [address] PAIN MANAGEMENT CONSULTATION Name: ARACELI PIERSON Room #: [facility].#: [id number] Admission: 09/30/20 Attend Phys: Felicitas Moss Discharge: Date of : 73 Report #: [id number] 3. We did review her opioid urine drug screen result that was positive for Contin, nicotine and THC. The patient reports that she had slowly been weaning from a pack of cigarettes a day and currently has been off for several months and also in the past, she had tried some THC from a friend to see if that would help with her ongoing daily headaches as a result of her pseudo cerebri tumor and nausea, but she is no longer taking that medication since she knows it does interfere with her opioids. She does not have a medical marijuana green card. She may consider that in the future, but currently plans to stay on her opioid medications from us. 4. The patient is seen today in collaboration with Dr. Jeffrey Stovall. <ELECTRONICALLY SIGNED> By: Felicitas Moss 10/03/20 [id number] Felicitas Moss /nt
== END ==
LOC: PAIN 07:02
PROVIDERS: ATTEND Clinical Nurse Specialist Adult Health
DX: G89.29 Other chronic pain (principal); J45.909 Unspecified asthma, uncomplicated; Z79.891 Long term (current) use of opiate analgesic

== ENCOUNTER → 2020-11-30 | Outpatient (CLI) | payer OTHER ==
[~2020-11-30] VITALS: Ht 175.3 cm; Wt 108.7 kg
[2020-11-30 09:42] VITALS: BP 142/95
--- NOTE | 2020-11-30 10:15 | NUR ---
Pain Clinic Assessment: 1. History of Osteoarthritis: NECK HANDS History of Rheumatoid Arthritis: Right Upper Extremity 2. Height: 5 ft. 9 in. 175.3 cm. Weight: 239.6 lb. oz. 108.682 kg. Patient's BMI: 35.4 3. Vital Signs: BP: 142/95 Pulse: 66 Resp: 16 Temp: 02 Sat: 100 ECG Mon: 4. Pain Intensity: 8 5. Fall Risk: Dizziness: Y Needs help standing or walking: N Fallen in the last 3 months: N Fall risk comments: 6. Patient on Blood Thinner: None 7. History of Hypertension: N 8. Opioid Therapy greater than 6 weeks: Y Opiate Contract Signed: 12/18/19 9. Risk Assessment Tool Provided: 3-LOW RISK 10. Functional Assessment Tool: / 11. Recreational Drug Use: Never Drug Type: Tobacco Use: Former Smoker Tobacco Type: Amount or Packs/day: How Many Years: Alcohol Use: Yes Frequency: Quant:
== END ==
LOC: PAIN 06:42
PROVIDERS: ATTEND Anesthesiology Pain Medicine
DX: G89.29 Other chronic pain (principal); I10 Essential (primary) hypertension; J45.909 Unspecified asthma, uncomplicated; G43.909 Migraine, unspecified, not intractable, without status migrainosus; Z79.899 Other long term (current) drug therapy; Z88.8 Allergy status to other drugs, medicaments and biological substances; Z88.1 Allergy status to other antibiotic agents; Z91.040 Latex allergy status

== ENCOUNTER → 2021-01-18 | Outpatient (CLI) | payer OTHER ==
[~2021-01-18] VITALS: Ht 175.3 cm; Wt 108.0 kg
[2021-01-18 12:54] VITALS: BP 174/85
--- NOTE | 2021-01-18 13:06 | NUR ---
Pain Clinic Assessment: 1. History of Osteoarthritis: NECK HANDS History of Rheumatoid Arthritis: Right Upper Extremity 2. Height: 5 ft. 9 in. 175.3 cm. Weight: 238.2 lb. oz. 108.047 kg. Patient's BMI: 35.2 3. Vital Signs: BP: 174/85 Pulse: 63 Resp: 18 Temp: 02 Sat: 100 ECG Mon: 4. Pain Intensity: 8 5. Fall Risk: Dizziness: N Needs help standing or walking: N Fallen in the last 3 months: N Fall risk comments: 6. Patient on Blood Thinner: None 7. History of Hypertension: N 8. Opioid Therapy greater than 6 weeks: Y Opiate Contract Signed: 12/18/19 9. Risk Assessment Tool Provided: 3-LOW RISK 10. Functional Assessment Tool: / 11. Recreational Drug Use: Never Drug Type: Tobacco Use: Former Smoker Tobacco Type: Amount or Packs/day: How Many Years: Alcohol Use: Yes Frequency: Quant:
== END ==
LOC: PAIN 06:51
PROVIDERS: ATTEND Anesthesiology Pain Medicine
DX: K86.1 Other chronic pancreatitis (principal); I10 Essential (primary) hypertension; J45.909 Unspecified asthma, uncomplicated; Z86.73 Personal history of transient ischemic attack (TIA), and cerebral infarction without residual deficits; Z86.69 Personal history of other diseases of the nervous system and sense organs; Z96.659 Presence of unspecified artificial knee joint; Z87.891 Personal history of nicotine dependence; Z88.8 Allergy status to other drugs, medicaments and biological substances; Z79.899 Other long term (current) drug therapy

== ENCOUNTER → 2021-03-24 | Outpatient (CLI) | payer OTHER ==
[~2021-03-24] VITALS: Ht 175.3 cm; Wt 105.3 kg
[2021-03-24 08:32] VITALS: BP 157/101
--- NOTE | 2021-03-24 08:49 | NUR ---
Pain Clinic Assessment: 1. History of Osteoarthritis: NECK HANDS History of Rheumatoid Arthritis: Right Upper Extremity 2. Height: 5 ft. 9 in. 175.3 cm. Weight: 232.2 lb. oz. 105.325 kg. Patient's BMI: 34.3 3. Vital Signs: BP: 157/101 Pulse: 70 Resp: 16 Temp: 02 Sat: 100 ECG Mon: 4. Pain Intensity: 9-10 5. Fall Risk: Dizziness: N Needs help standing or walking: N Fallen in the last 3 months: N Fall risk comments: 6. Patient on Blood Thinner: None 7. History of Hypertension: N 8. Opioid Therapy greater than 6 weeks: Y Opiate Contract Signed: 12/18/19 9. Risk Assessment Tool Provided: 3-LOW RISK 10. Functional Assessment Tool: 11. Recreational Drug Use: Never Drug Type: Tobacco Use: Former Smoker Tobacco Type: Amount or Packs/day: How Many Years: Alcohol Use: Yes Frequency: Quant:
== END ==
LOC: PAIN 07:01
PROVIDERS: ATTEND Anesthesiology Pain Medicine
DX: G89.29 Other chronic pain (principal); G40.909 Epilepsy, unspecified, not intractable, without status epilepticus; F40.00 Agoraphobia, unspecified; Z72.89 Other problems related to lifestyle; Z87.891 Personal history of nicotine dependence; Z90.49 Acquired absence of other specified parts of digestive tract; Z79.899 Other long term (current) drug therapy; Z91.040 Latex allergy status; Z88.1 Allergy status to other antibiotic agents; Z88.5 Allergy status to narcotic agent

== ENCOUNTER → 2021-05-19 | Outpatient (CLI) | payer OTHER ==
[~2021-05-19] VITALS: Ht 175.3 cm; Wt 107.0 kg
[2021-05-19 11:17] VITALS: BP 128/67
--- NOTE | 2021-05-19 11:54 | NUR ---
Pain Clinic Assessment: 1. History of Osteoarthritis: NECK HANDS History of Rheumatoid Arthritis: Right Upper Extremity 2. Height: 5 ft. 9 in. 175.3 cm. Weight: 235.8 lb. oz. 106.958 kg. Patient's BMI: 34.8 3. Vital Signs: BP: 128/67 Pulse: 71 Resp: 14 Temp: 02 Sat: 99 ECG Mon: 4. Pain Intensity: 7-8 5. Fall Risk: Dizziness: N Needs help standing or walking: N Fallen in the last 3 months: N Fall risk comments: 6. Patient on Blood Thinner: None 7. History of Hypertension: N 8. Opioid Therapy greater than 6 weeks: Y Opiate Contract Signed: 12/18/19 9. Risk Assessment Tool Provided: 3-LOW RISK 10. Functional Assessment Tool: 11. Recreational Drug Use: Never Drug Type: Tobacco Use: Former Smoker Tobacco Type: Amount or Packs/day: How Many Years: Alcohol Use: Yes Frequency: Quant:
== END ==
LOC: PAIN 08:15
PROVIDERS: ATTEND Anesthesiology Pain Medicine
DX: G93.2 Benign intracranial hypertension (principal); T85.09XA Other mechanical complication of ventricular intracranial (communicating) shunt, initial encounter; G89.29 Other chronic pain; I10 Essential (primary) hypertension; J45.909 Unspecified asthma, uncomplicated; R56.9 Unspecified convulsions; Z79.891 Long term (current) use of opiate analgesic; Z79.899 Other long term (current) drug therapy; Z91.040 Latex allergy status; Z88.1 Allergy status to other antibiotic agents; Z88.8 Allergy status to other drugs, medicaments and biological substances; Z90.49 Acquired absence of other specified parts of digestive tract; Z87.891 Personal history of nicotine dependence; Z72.89 Other problems related to lifestyle; Y82.8 Other medical devices associated with adverse incidents; Y92.89 Other specified places as the place of occurrence of the external cause

== ENCOUNTER → 2021-07-14 | Outpatient (CLI) | payer OTHER ==
[~2021-07-14] VITALS: Ht 175.3 cm; Wt 107.3 kg
[2021-07-14 11:03] VITALS: BP 131/76
--- NOTE | 2021-07-14 11:18 | NUR ---
Pain Clinic Assessment: 1. History of Osteoarthritis: NECK HANDS History of Rheumatoid Arthritis: Right Upper Extremity 2. Height: 5 ft. 9 in. 175.3 cm. Weight: 236.6 lb. oz. 107.321 kg. Patient's BMI: 34.9 3. Vital Signs: BP: 131/76 Pulse: 77 Resp: 16 Temp: 02 Sat: 100 ECG Mon: 4. Pain Intensity: 7-8 5. Fall Risk: Dizziness: Y Needs help standing or walking: N Fallen in the last 3 months: N Fall risk comments: 6. Patient on Blood Thinner: None 7. History of Hypertension: N 8. Opioid Therapy greater than 6 weeks: Y Opiate Contract Signed: 12/18/19 9. Risk Assessment Tool Provided: 3-LOW RISK 10. Functional Assessment Tool: 11. Recreational Drug Use: Never Drug Type: Tobacco Use: Former Smoker Tobacco Type: Amount or Packs/day: How Many Years: Alcohol Use: Yes Frequency: Quant:
== END ==
LOC: PAIN 10:15
PROVIDERS: ATTEND Anesthesiology Pain Medicine
DX: G89.29 Other chronic pain (principal); R51.9 Headache, unspecified; I10 Essential (primary) hypertension; J45.909 Unspecified asthma, uncomplicated; K86.1 Other chronic pancreatitis; Z85.9 Personal history of malignant neoplasm, unspecified; Z98.890 Other specified postprocedural states; Z90.49 Acquired absence of other specified parts of digestive tract; Z88.8 Allergy status to other drugs, medicaments and biological substances; Z79.899 Other long term (current) drug therapy

== ENCOUNTER → 2021-09-15 | Outpatient (CLI) | payer OTHER ==
[~2021-09-15] VITALS: Ht 177.8 cm; Wt 111.1 kg
[~2021-09-15] MED LIST changes: +BUTALB-APAP-CA1 EACH PO; +HYDROCODON-ACE1 EAC5 PO; +HYDROCODONE-AP1 EA11 PO
[2021-09-15 10:53] VITALS: BP 122/94
--- NOTE | 2021-09-15 10:56 | NUR ---
Pain Clinic Assessment: 1. History of Osteoarthritis: NECK HANDS History of Rheumatoid Arthritis: Right Upper Extremity 2. Height: 5 ft. 10 in. 177.8 cm. Weight: 245.0 lb. oz. 111.132 kg. Patient's BMI: 35.2 3. Vital Signs: BP: 122/94 Pulse: 86 Resp: 16 Temp: 02 Sat: 100 ECG Mon: 4. Pain Intensity: 9 5. Fall Risk: Dizziness: N Needs help standing or walking: N Fallen in the last 3 months: N Fall risk comments: 6. Patient on Blood Thinner: None 7. History of Hypertension: N 8. Opioid Therapy greater than 6 weeks: Y Opiate Contract Signed: 12/18/19 9. Risk Assessment Tool Provided: 3-LOW RISK 10. Functional Assessment Tool: / 11. Recreational Drug Use: Never Drug Type: Tobacco Use: Former Smoker Tobacco Type: Amount or Packs/day: How Many Years: Alcohol Use: Yes Frequency: Quant:
== END ==
LOC: PAIN 06:59
PROVIDERS: ATTEND Anesthesiology Pain Medicine
DX: G89.29 Other chronic pain (principal); M54.50 Low back pain, unspecified; I10 Essential (primary) hypertension; J45.909 Unspecified asthma, uncomplicated; K86.1 Other chronic pancreatitis; Z90.49 Acquired absence of other specified parts of digestive tract; Z88.8 Allergy status to other drugs, medicaments and biological substances; Z88.1 Allergy status to other antibiotic agents; Z79.899 Other long term (current) drug therapy

== ENCOUNTER → 2021-11-15 | Outpatient (CLI) | payer OTHER ==
[~2021-11-15] VITALS: Ht 177.8 cm; Wt 114.4 kg
[2021-11-15 09:22] VITALS: BP 117/81
--- NOTE | 2021-11-15 09:39 | NUR ---
Pain Clinic Assessment: 1. History of Osteoarthritis: NECK HANDS History of Rheumatoid Arthritis: Right Upper Extremity 2. Height: 5 ft. 10 in. 177.8 cm. Weight: 252.2 lb. oz. 114.397 kg. Patient's BMI: 36.2 3. Vital Signs: BP: 117/81 Pulse: 82 Resp: 14 Temp: 02 Sat: 98 ECG Mon: 4. Pain Intensity: 7 5. Fall Risk: Dizziness: N Needs help standing or walking: N Fallen in the last 3 months: N Fall risk comments: 6. Patient on Blood Thinner: None 7. History of Hypertension: N 8. Opioid Therapy greater than 6 weeks: Y Opiate Contract Signed: 12/18/19 9. Risk Assessment Tool Provided: 3-LOW RISK 10. Functional Assessment Tool: / 11. Recreational Drug Use: Never Drug Type: Tobacco Use: Former Smoker Tobacco Type: Amount or Packs/day: How Many Years: Alcohol Use: Yes Frequency: Monthly Quant: 1 drink every other month
== END ==
LOC: PAIN 08:03
PROVIDERS: ATTEND Clinical Nurse Specialist Adult Health
DX: G89.29 Other chronic pain (principal); M79.641 Pain in right hand; I10 Essential (primary) hypertension; K86.1 Other chronic pancreatitis; Z87.891 Personal history of nicotine dependence; Z88.8 Allergy status to other drugs, medicaments and biological substances; Z79.899 Other long term (current) drug therapy

== ENCOUNTER → 2022-01-05 | Outpatient (CLI) | payer OTHER ==
[~2022-01-05] VITALS: Ht 177.8 cm; Wt 115.8 kg
[2022-01-05 10:55] VITALS: BP 175/98
--- NOTE | 2022-01-05 11:02 | NUR ---
Pain Clinic Assessment: 1. History of Osteoarthritis: NECK HANDS History of Rheumatoid Arthritis: Right Upper Extremity 2. Height: 5 ft. 10 in. 177.8 cm. Weight: 255.4 lb. oz. 115.849 kg. Patient's BMI: 36.6 3. Vital Signs: BP: 175/98 Pulse: 69 Resp: 16 Temp: 02 Sat: 99 ECG Mon: 4. Pain Intensity: 8 5. Fall Risk: Dizziness: Y Needs help standing or walking: N Fallen in the last 3 months: N Fall risk comments: 6. Patient on Blood Thinner: None 7. History of Hypertension: N 8. Opioid Therapy greater than 6 weeks: Y Opiate Contract Signed: 12/18/19 9. Risk Assessment Tool Provided: 3-LOW RISK 10. Functional Assessment Tool: / 11. Recreational Drug Use: Never Drug Type: Tobacco Use: Former Smoker Tobacco Type: Amount or Packs/day: How Many Years: Alcohol Use: Yes Frequency: Quant:
== END ==
LOC: PAIN 07:06
PROVIDERS: ATTEND Clinical Nurse Specialist Adult Health
DX: G89.29 Other chronic pain (principal); R51.9 Headache, unspecified; K86.1 Other chronic pancreatitis; Z95.5 Presence of coronary angioplasty implant and graft; Z87.891 Personal history of nicotine dependence; Z88.8 Allergy status to other drugs, medicaments and biological substances; Z79.899 Other long term (current) drug therapy